=== PATIENT | female | born 1940 | race Caucasian/White ===

== ENCOUNTER → 2016-04-05 | Outpatient (CLI) | payer BC, OTHER ==
[~2016-04-05] MED LIST: CYCL0.052 OP; LEVO25TA PO
[2016-04-05 14:05] LABS: THYROID STIMULATING HORMONE 1.16 uIu/ml (0.300-4.500)
== END | disposition home or self-care (01) ==
LOC: C.LABBC 10:04
PROVIDERS: ATTEND Internal Medicine
DX: E03.9 Hypothyroidism, unspecified (principal)

== ENCOUNTER → 2016-05-13 | Outpatient (CLI) | payer BC ==
--- NOTE | 2016-05-13 11:41 | DIAGNOSTIC IMAGING REPORT ---
TWO VIEW CHEST CLINICAL HISTORY: Cough. FINDINGS: PA and lateral chest radiographs are compared to study dated 08/17/2013. The heart is mildly enlarged and there is atherosclerotic calcification of the thoracic aorta. There is a questionable 1.5 cm nodular density in the right midlung. No airspace consolidation or pleural effusion is seen. There is no pneumothorax. The skeletal structures are osteopenic. Degenerative change is noted throughout the thoracic spine. IMPRESSION: 1. Mild cardiac enlargement with no acute cardiopulmonary abnormality. 2. There is a questionable 1.5 cm nodular density projecting over the right midlung. Although this could represent artifact, a chest CT is recommended to exclude underlying pulmonary lesion. Electronically signed by: Todd Woods M.D. 05/13/2016 11:40 AM Dictated Date/Time: 05/13/2016 11:38 AM
== END | disposition home or self-care (01) ==
LOC: C.RAD1850 11:22
PROVIDERS: ATTEND Internal Medicine
DX: R05 Cough (principal)

== ENCOUNTER → 2016-05-21 | Outpatient (CLI) | payer BC ==
--- NOTE | 2016-05-21 08:53 | DIAGNOSTIC IMAGING REPORT ---
CT OF THE CHEST WITHOUT IV CONTRAST CLINICAL HISTORY: Pulmonary nodule COMPARISON STUDY: Chest x-ray dated 05/13/2016 CT DOSE: 216.12 mGy.cm TECHNIQUE: CT of the thorax was performed from the thoracic inlet to the lung bases. Images are reviewed in the axial, sagittal, and coronal planes. IV contrast was not administered for this examination. FINDINGS: Thyroid: Imaged portions of the thyroid gland are normal in appearance. Thoracic aorta: The thoracic aorta is normal in course and caliber, noting standard 3 vessel arch anatomy. Heart: The heart is normal in size and configuration, without pericardial effusion. Lungs and pleural spaces: There is mild pulmonary emphysema. There is a 4.5 mm solid right lower lobe pulmonary nodule as visualized on image #161/[id number]. There is irregular partially groundglass and solid 12 mm right upper lobe pulmonary nodule as visualized on image #129/316. This explains the chest x-ray findings. There are associated small occluded bronchi. Within the left upper lobe, there are clustered nodules and interstitial opacities. The largest nodule measures 6.8 mm. This is located on image #65/316. On image #191/3 and 16. There is a 3 mm solid pulmonary nodule. There are no pleural effusions. Mediastinum: There is no mediastinal lymphadenopathy. Kati: There is no evidence of pathologic hilar adenopathy given the limitations of a noncontrast study Axilla: Clear. Upper abdomen: Partially visualized upper abdominal viscera is within normal limits. Skeletal structures: There are no lytic or blastic osseous lesions. IMPRESSION: 1. Bilateral pulmonary nodules, including an irregularly partially groundglass and solid 12 mm right upper lobe pulmonary nodule which explains the chest x-ray findings. There are associated small occluded bronchi. Short-term follow-up is recommended to differentiate an inflammatory from neoplastic process. Please refer to below summary of Fleischner criteria recommendations for follow-up of incidental CT nodules (Viktor Talamantes, Guidelines for management of small pulmonary nodules detected on CT scans: A statement from the Fleischner Society, Radiology 237: [phone].) SOLID NODULES Solitary nodule size: <6 mm * low risk patients: no follow-up needed * high risk patients: optional CT at 12 months Solitary nodule size: 6-8 mm * low risk patients: follow-up at 6-12 months, then consider further follow-up at 18-24 months * high risk patients: initial follow-up CT at 6-12 months and then at 18-24 months if no change Solitary nodule size: >8 mm * either low or high risk patients - consider follow-up CT at 3 months, and/or CT-PET, and/or biopsy Multiple nodules size: <6 mm * low risk patients: no routine follow-up * high risk patients: optional CT at 12 months Multiple nodules size: 6-8 mm * low risk patients: follow-up at 3-6 months, then consider further follow-up at 18-24 months * high risk patients: follow-up at 3-6 months, then at 18-24 months if no change Multiple nodules size: >8 mm * low risk patients: follow-up at 3-6 months, then consider further follow-up at 18-24 months * high risk patients: follow-up at 3-6 months, then at 18-24 months if no change Note: newly detected indeterminate nodule in persons 35 years of age or older. * low risk patients: minimal or absent history of smoking and/or other known risk factors * high risk patients: history of smoking or of other known risk factors (e.g. first degree relative with lung cancer, or exposure to asbestos, radon, uranium) * if a nodule up to 8 mm is partly solid or is ground glass further follow-up is required after 24 months to exclude possible slow growing adenocarcinoma (CAITLIN) SUBSOLID NODULES Solitary pure ground-glass nodule * nodule size <6 mm - no CT follow-up required * nodule size >=6 mm - follow-up CT at 6-12 months, then every 2 years until 5 years Solitary part-solid nodule * nodule size <6 mm - no CT follow-up required * nodule size >=6 mm - follow-up CT at 3-6 months. If unchanged, and solid component remains <6 mm, then annual follow-up for 5 years Multiple subsolid nodules * nodule size <6 mm - follow-up CT at 3-6 months, consider further follow-up at 2 and 4 years if stable * nodule size >=6 mm - follow-up CT at 3-6 months, subsequent management based on the most suspicious nodule(s) Electronically signed by: Tono Stack M.D. 05/21/2016 8:51 AM Dictated Date/Time: 05/21/2016 8:41 AM
== END | disposition home or self-care (01) ==
LOC: C.CTS 08:26
PROVIDERS: ATTEND Physician Assistant
DX: R91.8 Other nonspecific abnormal finding of lung field (principal); J98.09 Other diseases of bronchus, not elsewhere classified

== ENCOUNTER → 2016-06-17 | Outpatient (CLI) | payer BC ==
[2016-06-17 14:41] LABS: HEMATOCRIT 37.3 % (37-47); MEAN CELL VOLUME 86.1 fL (80-100); MEAN CORPUSCULAR HEMOGLOBIN 28.2 pg (25-34); MEAN CORPUSCULAR HGB CONC 32.7 g/dl (32-36); MEAN PLATELET VOLUME 11.1 fL (7.4-10.4); PLATELET COUNT 163 K/uL (130-400); RED BLOOD COUNT 4.33 M/uL (4.2-5.4); WHITE BLOOD COUNT 3.16 K/uL (4.8-10.8)
[2016-06-17 15:03] LABS: BLOOD UREA NITROGEN 21 mg/dl (7-18); BUN/CREATININE RATIO 25.4 (10-20); CALCIUM 9.3 mg/dl (8.5-10.1); CARBON DIOXIDE 31 mmol/L (21-32); CHLORIDE 108 mmol/L (98-107); CREATININE 0.84 mg/dl (0.60-1.20); GLUCOSE 101 mg/dl (70-99); POTASSIUM 4.2 mmol/L (3.5-5.1); SODIUM 144 mmol/L (136-145)
[2016-06-17 15:13] LABS: THYROID STIMULATING HORMONE 0.656 uIu/ml (0.300-4.500)
[2016-06-17 15:41] LABS: BASO % 0.3 %; BASO ABS # 0.01 K/uL (0-0.2); COMPLETE YES; EOS % 1.9 %; LYMPH % 55.1 %; LYMPH ABS # 1.74 K/uL (1.2-3.4); MONO % 8.9 %; NEUT % 33.8 %
== END | disposition home or self-care (01) ==
LOC: C.LABBC 09:48
PROVIDERS: ATTEND Internal Medicine
DX: D72.819 Decreased white blood cell count, unspecified (principal); E55.9 Vitamin D deficiency, unspecified; E03.9 Hypothyroidism, unspecified

== ENCOUNTER → 2016-08-12 | Outpatient (CLI) | payer BC | END | disposition home or self-care (01) | LOC: C.LABSPEC 17:03 | PROVIDERS: ATTEND Podiatrist Primary Podiatric Medicine | DX: B35.1 Tinea unguium (principal) ==

== ENCOUNTER → 2016-09-15 | Outpatient (CLI) | payer BC ==
--- NOTE | 2016-09-15 11:03 | DIAGNOSTIC IMAGING REPORT ---
(CHEST) THORAX WITHOUT CT DOSE: 339.83 mGycm HISTORY: Lung nodules R91.8 Multiple lung nodules TECHNIQUE: Multiaxial CT images of the chest were performed without contrast. A dose lowering technique was utilized adhering to the principles of ALARA. COMPARISON: 05/21/2016 FINDINGS: Unchanging left upper lobe parenchymal nodule. Slight improvement in associated infiltrative change considered pleural-based lateral aspect left upper lung. The additional nodules appear stable to perhaps minimally diminished in prominence. Groundglass density within the right upper lobe is diminished in prominence. Maximum dimension currently is approximately 1 cm diminished from the prior dimension of 1.2 cm. Density has also diminished which is considered an improvement. The included bronchi have improved. Nodular density right lower lobe transaxial image 32 is unchanged. There is no evidence for new interval or progressive parenchymal nodule. There is no significant hilar or mediastinal jose pathology. There are degenerative changes of thoracic region. IMPRESSION: 1. Improved exam with the groundglass nodule right upper lung diminished in volume as well as density. 2. All additional nodules are stable with routine follow-up recommended. Please refer to below summary of Fleischner criteria recommendations for follow-up of incidental CT nodules (Viktor Talamantes, Guidelines for management of small pulmonary nodules detected on CT scans: A statement from the Fleischner Society, Radiology 237: [phone].) SOLID NODULES Solitary nodule size: <6 mm * low risk patients: no follow-up needed * high risk patients: optional CT at 12 months Solitary nodule size: 6-8 mm * low risk patients: follow-up at 6-12 months, then consider further follow-up at 18-24 months * high risk patients: initial follow-up CT at 6-12 months and then at 18-24 months if no change Solitary nodule size: >8 mm * either low or high risk patients - consider follow-up CT at 3 months, and/or CT-PET, and/or biopsy Multiple nodules size: <6 mm * low risk patients: no routine follow-up * high risk patients: optional CT at 12 months Multiple nodules size: 6-8 mm * low risk patients: follow-up at 3-6 months, then consider further follow-up at 18-24 months * high risk patients: follow-up at 3-6 months, then at 18-24 months if no change Multiple nodules size: >8 mm * low risk patients: follow-up at 3-6 months, then consider further follow-up at 18-24 months * high risk patients: follow-up at 3-6 months, then at 18-24 months if no change Note: newly detected indeterminate nodule in persons 35 years of age or older. * Low risk patients: minimal or absent history of smoking and/or other known risk factors * high risk patients: history of smoking or of other known risk factors (e.g. first degree relative with lung cancer, or exposure to asbestos, radon, uranium) * if a nodule up to 8 mm is partly solid or is ground glass further follow-up is required after 24 months to exclude possible slow growing adenocarcinoma (CAITLIN) SUBSOIL NODULES Solitary pure ground-glass nodule * nodule size <6 mm - no CT follow-up required * nodule size >=6 mm - follow-up CT at 6-12 months, then every 2 years until 5 years Solitary part-solid nodule * nodule size <6 mm - no CT follow-up required * nodule size >=6 mm - follow-up CT at 3-6 months. If unchanged, and solid component remains <6 mm, then annual follow-up for 5 years Multiple subsolid nodules * nodule size <6 mm - follow-up CT at 3-6 months, consider further follow-up at 2 and 4 years if stable * nodule size >=6 mm - follow-up CT at 3-6 months, subsequent management based on the most suspicious nodule(s) The above report was generated using voice recognition software. It may contain grammatical, syntax or spelling errors. Electronically signed by: Shelton Romero M.D. 09/15/2016 11:01 AM Dictated Date/Time: 09/15/2016 10:54 AM
== END | disposition home or self-care (01) ==
LOC: C.CTS 10:41
PROVIDERS: ATTEND Internal Medicine Pulmonary Disease
DX: R91.8 Other nonspecific abnormal finding of lung field (principal)

== ENCOUNTER → 2016-12-03 | Outpatient (CLI) | payer BC ==
[2016-12-03 11:15] LABS: HEMATOCRIT 37.8 % (37-47); MEAN CELL VOLUME 84.9 fL (80-100); MEAN CORPUSCULAR HEMOGLOBIN 28.1 pg (25-34); MEAN CORPUSCULAR HGB CONC 33.1 g/dl (32-36); MEAN PLATELET VOLUME 10.3 fL (7.4-10.4); PLATELET COUNT 170 K/uL (130-400); RED BLOOD COUNT 4.45 M/uL (4.2-5.4); WHITE BLOOD COUNT 4.04 K/uL (4.8-10.8)
[2016-12-03 11:29] LABS: BASO % 0.2 %; BASO ABS # 0.01 K/uL (0-0.2); COMPLETE YES; LYMPH % 67.1 %; LYMPH ABS # 2.71 K/uL (1.2-3.4); MONO % 10.6 %; NEUT % 21.1 %
[2016-12-03 12:14] LABS: BLOOD UREA NITROGEN 22 mg/dl (7-18); BUN/CREATININE RATIO 25.8 (10-20); CALCIUM 9.3 mg/dl (8.5-10.1); CARBON DIOXIDE 31 mmol/L (21-32); CHLORIDE 106 mmol/L (98-107); CHOLESTEROL 184 mg/dl (0-200); CREATININE 0.86 mg/dl (0.60-1.20); GLUCOSE 86 mg/dl (70-99); POTASSIUM 4.7 mmol/L (3.5-5.1); SODIUM 141 mmol/L (136-145); TRIGLYCERIDES 146 mg/dl (0-150); VERY LOW DENSITY LIPOPROT CALC 29 mg/dl
[2016-12-03 12:23] LABS: CHOLESTEROL/HDL RATIO 3.5; HDL CHOLESTEROL 52 mg/dl; LDL CHOLESTEROL CALCULATED 103 mg/dl; THYROID STIMULATING HORMONE 0.756 uIu/ml (0.300-4.500)
== END | disposition home or self-care (01) ==
LOC: C.LABBC 08:12
PROVIDERS: ATTEND Internal Medicine
DX: E03.9 Hypothyroidism, unspecified (principal); E78.5 Hyperlipidemia, unspecified; D72.819 Decreased white blood cell count, unspecified; E55.9 Vitamin D deficiency, unspecified

== ENCOUNTER → 2017-01-27 | Outpatient (CLI) | payer BC ==
--- NOTE | 2017-01-28 07:35 | MAMMOGRAPHY REPORT ---
BILATERAL DIGITAL SCREENING MAMMOGRAM WITH CAD: 01/27/2017 CLINICAL HISTORY: Routine screening. Patient has no complaints. TECHNIQUE: Bilateral CC and MLO views were obtained. Current study was also evaluated with a Comput er Aided Detection (CAD) system. COMPARISON: Comparison is made to exams dated: 01/25/2016 mammogram, 01/23/2015 mammogram, 01/17/2014 mammogram, 01/13/2013 mammogram, 01/13/2012 mammogram, and 01/03/2011 stereotactic biopsy - [facility]. BREAST COMPOSITION: There are scattered areas of fibroglandular density in both breasts. FINDINGS: A focal asymmetry in the 6:00 middle one third of the right breast is stable on all availab le prior mammograms dating back to at least 2008, therefore likely benign. There is a stable metalli c biopsy marker clip in the anterior right breast. Numerous benign rim calcifications bilaterally. No new suspicious mass, architectural distortion or cluster of microcalcifications is seen. IMPRESSION: ACR BI-RADS CATEGORY 1: NEGATIVE There is no mammographic evidence of malignancy. A 1 year screening mammogram is recommended. The pa tient will receive written notification of the results. Approximately 10% of breast cancers are not detected with mammography. A negative mammographic report should not delay biopsy if a clinically suggestive mass is present. Hanna Sawyer M.D. ay/:01/27/2017 16:21:18 Verifying Specialist: Parisa Giraldo M, [facility] letter sent: Normal 1/2 BI-RADS Code: ACR BI-RADS Category 1: Negative
== END | disposition home or self-care (01) ==
LOC: C.MAMM 11:15
PROVIDERS: ATTEND Internal Medicine
DX: Z12.31 Encounter for screening mammogram for malignant neoplasm of breast (principal)

== ENCOUNTER → 2017-04-13 | Outpatient (CLI) | payer BC ==
[2017-04-13 11:42] LABS: HEMATOCRIT 37.6 % (37-47); HEMOGLOBIN 12.5 g/dL (12.0-16.0); MEAN CELL VOLUME 85.5 fL (80-100); MEAN CORPUSCULAR HEMOGLOBIN 28.4 pg (25-34); MEAN CORPUSCULAR HGB CONC 33.2 g/dl (32-36); MEAN PLATELET VOLUME 10.4 fL (7.4-10.4); PLATELET COUNT 180 K/uL (130-400); RED CELL DISTRIBUTION WIDTH CV 15.3 % (11.5-14.5); RED CELL DISTRIBUTION WIDTH SD 48.1 fL (36.4-46.3); WHITE BLOOD COUNT 4.24 K/uL (4.8-10.8)
== END | disposition home or self-care (01) ==
LOC: C.LABBC 09:04
PROVIDERS: ATTEND Internal Medicine
DX: E03.9 Hypothyroidism, unspecified (principal); D72.819 Decreased white blood cell count, unspecified

== ENCOUNTER → 2017-04-30 | Outpatient (CLI) | payer BC ==
[2017-04-30 13:33] LABS: HEMATOCRIT 38.5 % (37-47); HEMOGLOBIN 12.5 g/dL (12.0-16.0); MEAN CELL VOLUME 85.4 fL (80-100); MEAN CORPUSCULAR HEMOGLOBIN 27.7 pg (25-34); MEAN CORPUSCULAR HGB CONC 32.5 g/dl (32-36); MEAN PLATELET VOLUME 10.6 fL (7.4-10.4); PLATELET COUNT 169 K/uL (130-400); RED CELL DISTRIBUTION WIDTH CV 15.1 % (11.5-14.5); RED CELL DISTRIBUTION WIDTH SD 47.2 fL (36.4-46.3); WHITE BLOOD COUNT 4.27 K/uL (4.8-10.8)
[2017-04-30 13:38] LABS: BLOOD UREA NITROGEN 23 mg/dl (7-18); CALCIUM 8.9 mg/dl (8.5-10.1); CARBON DIOXIDE 28 mmol/L (21-32); CREATININE 0.84 mg/dl (0.60-1.20); GLUCOSE 106 mg/dl (70-99); SODIUM 140 mmol/L (136-145)
== END | disposition home or self-care (01) ==
LOC: C.LABBC 09:58
PROVIDERS: ATTEND Internal Medicine
DX: D75.81 Myelofibrosis (principal)

== ENCOUNTER → 2017-05-19 | Outpatient (CLI) | payer BC ==
--- NOTE | 2017-05-19 11:41 | DIAGNOSTIC IMAGING REPORT ---
ABDOMEN COMPLETE (US) CLINICAL HISTORY: Myelofibrosis. COMPARISON STUDY: No previous studies for comparison. FINDINGS: Liver is sonographically normal. There is no biliary ductal dilatation. The common bile duct measures 5 mm in caliber. There are gallstones and sludge within the gallbladder. Borderline gallbladder wall thickening is noted with the wall measuring approximately 3 mm. There is no pericholecystic fluid. The pancreas is within normal limits although the head and tail are partially obscured. The spleen is mildly enlarged measuring 13 cm in maximal dimension. The right kidney measures 12.3 cm and the left measures 11.1 cm. There is no hydronephrosis. The caliber of the abdominal aorta is normal. There is no ascites. Visualized portions of the IVC are patent. IMPRESSION: 1. Mild splenomegaly. Spleen measures 13 cm in maximal dimension. 2. Cholelithiasis with borderline gallbladder wall thickening. No pericholecystic fluid. These findings are not highly suggestive of acute cholecystitis although correlation with right upper quadrant pain is recommended. 3. No biliary ductal dilatation. Electronically signed by: Juan Moon M.D. 05/19/2017 11:40 AM Dictated Date/Time: 05/19/2017 11:36 AM
== END | disposition home or self-care (01) ==
LOC: C.ULTR 10:13
PROVIDERS: ATTEND Internal Medicine Hematology & Oncology
DX: K80.20 Calculus of gallbladder without cholecystitis without obstruction (principal); D75.81 Myelofibrosis

== ENCOUNTER → 2017-07-02 | Outpatient (CLI) | payer BC ==
--- NOTE | 2017-07-02 08:45 | DIAGNOSTIC IMAGING REPORT ---
(CHEST) THORAX WITHOUT CT DOSE: 272.21 mGycm HISTORY: Lung nodules R91.8 Multiple lung nodules on CTto be done in 9 [id number] TECHNIQUE: Multiaxial CT images of the chest were performed without contrast. A dose lowering technique was utilized adhering to the principles of ALARA. COMPARISON: 09/15/2016 FINDINGS: All findings are stable. Parenchymal nodule left pulmonary apex with fibrotic stranding towards the left pleural service is unchanged. The small nodular density superior segment right lower lobe is unchanged. Groundglass density of the right perihilar region is unchanged with maximum dimensions of 9 mm. Lung bases are considered clear. No significant mediastinal or hilar adenopathy. IMPRESSION: Identical exam compared to the prior study. 2. The several parenchymal nodules as well as groundglass densities are unchanged. 3. No new or interval process. 4. Follow-up CT in one year is suggested. The above report was generated using voice recognition software. It may contain grammatical, syntax or spelling errors. Electronically signed by: Shelton Romero M.D. 07/02/2017 8:44 AM Dictated Date/Time: 07/02/2017 8:39 AM
== END | disposition home or self-care (01) ==
LOC: C.CTS 08:27
PROVIDERS: ATTEND Internal Medicine Pulmonary Disease
DX: R91.8 Other nonspecific abnormal finding of lung field (principal)

== ENCOUNTER → 2017-09-18 | Outpatient (CLI) | payer BC ==
[~2017-09-18] MED LIST changes: +CYAN100020 PO; -CYCL0.052 OP; +CYCL0.052 OPB; +HYDR-5688 PO; +LEVO100T7 PO; -LEVO25TA PO; +VITAMIN D PO
[2017-09-18 10:44] LABS: ALBUMIN 3.9 gm/dl (3.4-5.0); ALKALINE PHOSPHATASE 57 U/L (45-117); ALT/SGPT 32 U/L (12-78); AST/SGOT 33 U/L (15-37); BLOOD UREA NITROGEN 22 mg/dl (7-18); CARBON DIOXIDE 29 mmol/L (21-32); GLUCOSE 83 mg/dl (70-99); POTASSIUM 4.5 mmol/L (3.5-5.1); PTT PATIENT 25.2 SECONDS (21.0-31.0); SODIUM 140 mmol/L (136-145); TOTAL PROTEIN 7.1 gm/dl (6.4-8.2)
== END | disposition home or self-care (01) ==
LOC: C.LAB 08:44
PROVIDERS: ATTEND Surgery
DX: Z01.810 Encounter for preprocedural cardiovascular examination (principal); Z01.812 Encounter for preprocedural laboratory examination

== ENCOUNTER 2017-09-23 06:01 | Observation (INO) | payer BC ==
[2017-09-17 08:40] VITALS: BMI 28.0
[2017-09-18 09:05] VITALS: BMI 28.0
--- NOTE | 2017-09-18 09:23 | PAT Medication Instructions ---
Service Date Sep 18, 2017. Current Home Medication List Cyanocobalamin (Vitamin B12), 1 TAB PO QAM Cyclosporine (Ophth) (Restasis), 1 DROP OPB BID Levothyroxine Sodium (Levothyroxine Sodium), 1 TAB PO QAM [Vitamin D], 4,000 INTER.UNIT PO QAM Medication Instructions For Your Scheduled Surgery - Hold the following medications the morning of surgery: Cyanocobalamin (Vitamin B12), 1 TAB PO QAM [Vitamin D], 4,000 INTER.UNIT PO QAM - Take the following medications the morning of surgery with a sip of water: Cyclosporine (Ophth) (Restasis), 1 DROP OPB BID --Bring with you to the hospital Levothyroxine Sodium (Levothyroxine Sodium), 1 TAB PO QAM - Take the following medications as scheduled the night before surgery: Cyclosporine (Ophth) (Restasis), 1 DROP OPB BID If you have any questions please call us at [phone] or [phone] or [phone]
[~2017-09-23] VITALS: Ht 165.1 cm; Wt 77.2 kg
[2017-09-23] VITALS (12 sets, daily range): BP systolic 102–132; BP diastolic 47–75; PULSE 45–64; TEMP 36.4–36.8; O2SAT 95–97; Ht 165.1 cm; Wt 77.2 kg
[~2017-09-23 06:01] MED LIST changes: +CLINDAMYCIN IV 900 MG in DEXTROSE 5% 50ML 44 ML IV SCH; -HYDR-5688 PO; +LACTATED RINGER'S 1000ML 1,000 ML IV SCH
[2017-09-23] MEDS ORDERED: ROCURONIUM BROMIDE 10 MG/ML 5 ML VIAL ONE (07:38)
[2017-09-23] MEDS ORDERED: PROPOFOL IV EMULSION 10 MG/ML 20 ML VIAL ONE (07:38)
[2017-09-23] MEDS ORDERED: LIDOCAINE 2% 20 MG/ML 5ML SYR ONE (07:38)
[2017-09-23] MEDS ORDERED: FENTANYL CITRATE INJ 50 MCG/1 ML 2 ML VIAL ONE ×2 (07:39→09:05)
[2017-09-23] MEDS ORDERED: PHENYLEPHRINE 100MCG/ML 5ML SYR IV PRN (07:45)
[2017-09-23] MEDS ORDERED: ATROPINE SULFATE 0.1 MG/ML 5ML SYR IV PRN (07:45)
[2017-09-23] MEDS ORDERED: EpHEDrine SULFATE INJ 50 MG/ML AMP IV PRN (07:45)
[2017-09-23] MEDS ORDERED: ONDANSETRON INJ 2 MG/ML 2 ML VIAL IV PRN ×2 (07:45→09:30)
[2017-09-23] MEDS ORDERED: FENTANYL CITRATE INJ 50 MCG/1 ML 2 ML VIAL IV PRN (07:45)
[2017-09-23] MEDS ORDERED: HYDROmorphone INJ 1 MG/ML SYR IV PRN (07:45)
[2017-09-23] MEDS ORDERED: BUPIVACAINE 0.5 % 5 MG/1 ML PF 10ML VIAL ONE (08:08)
[2017-09-23] MEDS ORDERED: CONRAY 60% 50 ML VIAL ONE (08:08)
--- NOTE | 2017-09-23 08:08 | History & Physical Bridge Note ---
H&P Re-Evaluation Bridge Note: I have examined the patient, reviewed the History & Physical and in the interval since the performance of the History & Physical I have noted the following changes of clinical significance: No changes noted
[2017-09-23] MEDS ORDERED: DEXAMETHASONE SOD INJ 4 MG/ML VIAL ONE (08:46)
[2017-09-23] MEDS ORDERED: EpHEDrine SULFATE 50MG/5ML SYR ONE (08:46)
[2017-09-23] MEDS ORDERED: ONDANSETRON INJ 2 MG/ML 2 ML VIAL ONE (08:46)
[2017-09-23] MEDS ORDERED: NEOSTIGMINE METHYLSULFATE 5 MG/5 ML SYR ONE (09:06)
[2017-09-23] MEDS ORDERED: GLYCOPYRROLATE INJ 0.2 MG/ML VIAL ONE (09:06)
--- NOTE | 2017-09-23 09:22 | [facility] Operative Report ---
Operative Report Operative Date Sep 23, 2017. Pre-Operative Diagnosis Biliary colic and Biliary Dyskinesia Post-Operative Diagnosis Biliary colic and Biliary Dyskinesia, chronic cholecystitis Procedure(s) Performed Laparoscopic Cholecystectomy Surgeon Dr. Aston Brock Informal Waiter/Waitress Surgeon(s) None Estimated Blood Loss 10 cc Findings chronic adhesions Specimens A: Gallbladder and Contents Drains None Anesthesia Type General Complication(s) none Disposition Recovery Room / PACU I attest to the content of the Intraoperative Record and any orders documented therein. Any exceptions are noted below.
[2017-09-23] MEDS ORDERED: MoRPHine SULFATE 2 MG/ML CARP IV PRN (09:30)
[2017-09-23] MEDS ORDERED: MoRPHine SULFATE 4 MG/ML 1 ML CARP\\VIAL IV PRN (09:30)
[2017-09-23] MEDS ORDERED: HYDROCODONE/ACETAMIN 5/325MG TAB PO PRN ×2 (09:30)
[2017-09-23] MEDS ORDERED: ACETAMINOPHEN IV 100 ML IV ONE (09:30)
--- NOTE | 2017-09-23 10:22 | Anesthesiology Progress Note ---
Anesthesia Post Op Note Date & Time Sep 23, 2017 at 10:22 Vital Signs Pain Intensity: 3 Vital Signs Past 12 Hours Date Time Temp Pulse Resp B/P (MAP) Pulse Ox O2 Delivery O2 Flow Rate FiO2 09/23/17 10:10 53 20 120/53 98 Room Air 09/23/17 10:00 54 16 127/56 100 Oxymask 10 09/23/17 09:50 59 16 122/59 100 Oxymask 09/23/17 09:43 36.2 76 16 133/68 100 Oxymask 10 09/23/17 06:29 36.8 64 18 118/47 (70) 97 Room Air Notes Mental Status: alert / awake / arousable, participated in evaluation Pt Amnestic to Procedure: Yes Nausea / Vomiting: adequately controlled Pain: adequately controlled Airway Patency, RR, SpO2: stable & adequate BP & HR: stable & adequate Hydration State: stable & adequate Anesthetic Complications: no major complications apparent
[2017-09-23] MEDS ORDERED: SODIUM CHLORIDE 0.9% 1000ML 1,000 ML IV SCH (11:00)
[2017-09-23] MEDS ORDERED: IV FLUIDS COMPLETED PRN (11:30)
--- NOTE | 2017-09-23 12:01 | Medical Consult ---
Consultation Date of Consultation: Sep 23, 2017. Attending Physician: Aston Brock M.D. Reason for Consultation: Perioperative care History of Present Illness This is a 77 yo female that had some nausea as an out patient at the hematology clinic. They ordered an ultra sound which did not reveal infection but did have some sludge. She then had a HIDA scan 09/01/17 which also revealed some sludge with no obstruction. An elective laparoscopic cholecystectomy was performed today with no complications. We were consulted for medical management. On exam, the patient was found to have bradycardia in the mid 40s. Patient reported that she had some readings in the 30s. An EKG was ordered and revealed 1st degree heart block. Patient was transferred to telemetry before further antiemetics were administered. In the tele unit, heart rate was 49 and was NSR. Patient denies other significant PMH. She is being treated for hypothyroidism with medications being titrated regularly by Dr. Alvarez. She denies tobacco abuse history, cardiopulmonary disease, HTN, thromboembolic disease. No recent travel or illness Patient denies chest pain, tightness, palpitations, fever, chills, sweats. No diarrhea. Patient no history of C. diff or other gastrointestinal disease NUCLEAR MEDICINE HEPATOBILIARY SCAN WITH EJECTION FRACTION ANALYSIS CLINICAL HISTORY: GALLSTONES right upper quadrant abdominal pain COMPARISON STUDY: Abdominal ultrasound dated 05/19/2017 FINDINGS: The patient was injected with 5.5 mCi of technetium 99m Choletec. Sequential anterior images were acquired. Hepatic excretion appeared unremarkable. There is normal passage of activity into small bowel. The gallbladder was first visualized on the 15 minute image. At 1 hour, the patient was injected with 1.5 mcg of intravenous sincalide utilizing a 30 minute infusion. The gallbladder ejection fraction was slightly diminished measuring 29%. IMPRESSION: 1. No evidence of cystic duct obstruction 2. Slightly diminished gallbladder ejection fraction of 29%. Electronically signed by: Tono Stack M.D. 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 Ankylosing spondylitis Raynauds disease Surgical History: B/L cataract repair Bone marrow biopsy Mammogram Colonoscopy Multiple D&Cs ORIF radius fracture Family History Mother of unspecified heart block Breast cancer Ovarian cancer Colon cancer Social History Smoking Status: Never Smoker Smokeless Tobacco Use: No Alcohol Use: 1 or 2 glasses of wine per year Marital Status: Housing Status: lives alone Occupation Status: retired Allergies Coded Allergies: Penicillins (Verified Allergy, Mild, HIVES, 09/23/17) Home Medications Home Meds and Scripts Medications Dose Route/Sig Max Daily Dose Days Date Category Restasis (Cyclosporine (Ophth)) 0.05 % Emu 1 Drop OPB BID 09/17/17 Reported Vitamin B12 (Cyanocobalamin) 1,000 Mcg Tab 1 Tab PO QAM 09/17/17 Reported [Vitamin D] 4,000 Inter.unit PO QAM 09/17/17 Reported Levothyroxine Sodium 100 Mcg Tab 1 Tab PO QAM 09/17/17 Reported Current Inpatient Medications Current Inpatient Medications Medications (Trade) Dose Ordered Sig/Lionel Route Start Time Stop Time Status Last Admin Dose Admin Lactated Ringer's 1,000 ml @ 15 mls/hr Q24H IV 09/23/17 06:00 09/24/17 05:59 09/23/17 06:29 15 MLS/HR Fentanyl Citrate (Fentanyl Inj) 25 mcg Q5M PRN IV 09/23/17 07:45 09/23/17 12:45 Hydromorphone HCl (Dilaudid Inj) 0.5 mg Q5M PRN IV 09/23/17 07:45 09/23/17 12:45 Ondansetron HCl (Zofran Inj) 4 mg ONE PRN IV 09/23/17 07:45 09/23/17 12:45 Ephedrine Sulfate (EpHEDrine SULFATE INJ) 5 mg Q5M PRN IV 09/23/17 07:45 09/23/17 12:45 Atropine Sulfate (Atropine Sulfate 0.1mg/ml Inj) 0.5 mg Q1M PRN IV 09/23/17 07:45 09/23/17 12:45 Phenylephrine HCl (Alo-Synephrine 500MCG/5ML Syr) 100 mcg Q5M PRN IV 09/23/17 07:45 09/23/17 12:45 Acetaminophen/ Hydrocodone Bitart ([place] 5/325 Tab) 1 tab Q4 PRN PO 09/23/17 09:30 10/07/17 09:29 Acetaminophen/ Hydrocodone Bitart ([place] 5/325 Tab) 2 tab Q4 PRN PO 09/23/17 09:30 10/07/17 09:29 Morphine Sulfate (MoRPHine SULFATE INJ) 2 mg Q4H PRN IV 09/23/17 09:30 10/07/17 09:29 Morphine Sulfate (MoRPHine SULFATE INJ) 4 mg Q4H PRN IV 09/23/17 09:30 10/07/17 09:29 Ondansetron HCl (Zofran Inj) 4 mg Q6H PRN IV 09/23/17 09:30 10/23/17 09:29 Levothyroxine Sodium (Synthroid Tab) 100 mcg DAILYBB PO 09/24/17 06:00 10/24/17 05:59 Clindamycin Phosphate 600 mg/ Dextrose 54 ml @ 108 mls/hr Q8 IV 09/23/17 14:00 10/03/17 13:59 Miscellaneous (Iv Fluids Completed) 1 ea PRN PRN N/A 09/23/17 11:30 09/23/18 11:29 Review of Systems Constitutional: No fever, No chills Eyes: No eye pain, No redness ENT: No hearing loss, No unusual epistaxis, No trouble swallowing Respiratory: No cough, No sputum, No shortness of breath, No dyspnea on exertion, No hemoptysis Cardiovascular: No chest pain, No edema, No claudication, No palpitations Abdomen: + nausea, No pain, No vomiting, No diarrhea Musculoskeletal: No joint pain Neurologic: No numbness/tingling, No vertigo Hematologic / Lymphatic: No abnormal bleeding/bruising, No clotting problems, No swollen lymph nodes, No night sweats Integumentary: No rash, No itch Allergic / Immunologic: + problem reported (sensitivity to adhesives), No environmental allergies, No food allergies Physical Exam Date Time Temp Pulse Resp B/P (MAP) Pulse Ox O2 Delivery O2 Flow Rate FiO2 09/23/17 11:43 46 16 121/66 (84) 96 Room Air 09/23/17 11:11 46 16 132/67 (88) 97 Room Air 09/23/17 10:40 Nasal Cannula 2.0 09/23/17 10:40 36.5 45 16 132/75 (94) 97 Nasal Cannula 2.0 09/23/17 10:40 Nasal Cannula 2.0 09/23/17 10:20 36.2 50 20 123/84 99 Room Air 09/23/17 10:10 53 20 120/53 98 Room Air 09/23/17 10:00 54 16 127/56 100 Oxymask 10 09/23/17 09:50 59 16 122/59 100 Oxymask 10 09/23/17 09:43 36.2 76 16 133/68 100 Oxymask 10 09/23/17 06:29 36.8 64 18 118/47 (70) 97 Room Air Vital Signs - as noted below Laboratory Data - as noted below Physical Exam: General - NAD Eyes - No icterus, gaze conjugate ENT - Mucosa moist, no lesions or candidiasis Neck - Supple, No JVD Lungs - No bronchospasm, rales, or rhonchi. Heart - Regular, baylee in the 40s. No MGRs. Occasional ectopy Abdomen - Soft, NT, ND, BS present Extremities - No edema, pedal pulses intact Neuro - A&OX3 Assessment & Plan This is a 77 yo female that is POD #[address] Brock. Patient underwent general anesthesia and was found to be bradycardic postoperatively. EKG obtained at bedside and revealed 1st degree AV block with a QtC of 446. Patient reports family history of cardiac from AV block with her mother. Hemodynamically stable. Nausea but no vomiting. Pain generally controlled CHOLYCYSTITIS * POD #0 lap zoe - Dr. Brock * Afebrile * 4 trocar sites * No drains * Abx per Dr. Brock 1ST DEGREE AV BLOCK * New onset. Patient admits to previous hx of bradycardia post operatively but no other heart disease * Denies prior echocardiogram * No CAD * No chest pain, tightness, SOB * Oxygenating well on room air HYPOTHYROIDISM * Continue levothyroxine * Check TSH with reflex T4 Hx NEUTROPENIA/LEUKOPENIA * Preoperative WBC was * Properative Neutrophil count was * Afebrile * No recent illness * Follows with Dr. Dean * Check current labs GERD * No current s/s * Not on an outpatient PPI or H2 long * Monitor DVT PROPHYLAXIS * SCDs * Ambulate as tolerated Thank you for including us in the care of this patient. We will follow along with you. Please refer to Dr. Patino's addendum for further recommendations. Reviewed: Pt Seen/Exam by Me History Physician Systems Software Engineer supervision Note: I interviewed and examined the patient. Discussed with ADAN gale and agree with findings and plan as documented in the note. Any exceptions or clarifications are listed here: Patient was nauseated in the postoperative period and was found to be bradycardic in the 40s. First-degree AV block on ECG. Nausea was improved with Zofran and her bradycardia is improving. She was in the 60s preoperatively her heart rate. She denies chest pain or palpitations, denies shortness of breath. Has some postoperative abdominal pain but otherwise doing well. PMH/PSH/other history and ROS as above Vitals reviewed Gen: AAOx3, NAD HEENT: anicteric sclerae, EOMI CV: Regular rhythm, bradycardic, no mgr nl S1S2 Pulm: CTAB no wcr Abd: +BS soft, minimal tenderness at incision sites, ND no masses or hernias Ext: no edema, 2+ DP pulses Skin: no rashes, warm/dry Neuro: full strength throughout This patient is a 77-year-old female with a history of hypothyroidism, biliary dyskinesia, ankylosing spondylitis, LGL leukemia, here with laparoscopic cholecystectomy. With some sinus bradycardia and nausea postoperatively. Monitor on telemetry -Treat the nausea and that should help the bradycardia -Blood counts are acceptable -Surgical management postoperatively as per Dr. Brock -Continue home levothyroxine Documented By: Brook Patino
--- NOTE | 2017-09-23 12:20 | OPERATIVE REPORT ---
DATE OF OPERATION: 09/23/2017 NAME OF OPERATION: Laparoscopic cholecystectomy. PREOPERATIVE DIAGNOSIS: Biliary colic. POSTOPERATIVE DIAGNOSIS: Biliary colic with chronic cholecystitis. OTHER DIAGNOSIS: Adhesions. STAFF SURGEON: Dr. Brock. ANESTHESIA: General. DESCRIPTION OF PROCEDURE: The patient was brought in to the operating room and placed on the operating table in supine position. Pneumatic stockings, orogastric tube were placed. A 0.5% plain Marcaine was used to anesthetize all incisions. Incision was made above the umbilicus, carrying dissection down, placing a Veress needle producing pneumoperitoneum. An 11 mm port was placed at this level and then under visualization, three 5 mm ports were placed, 1 cephalad and 2 laterally. The patient did have adhesions in chronic nature to the gallbladder. The gallbladder was retracted. The adhesions were taken down. She had adhesions the entire length of the gallbladder. Dissection was carried out at the arpan hepatis identifying a very narrow cystic duct, which was clipped and transected, then the cystic artery identified, clipped and transected. Then, the gallbladder dissected away from the liver bed. There was chronic scar tissue indicating chronic cholecystitis. Gallbladder was removed from the liver bed and then placed in an Endobag. After appropriate hemostasis and irrigation, the Endobag was removed through the umbilical site. I had to enlarge the fascial defect to remove the gallbladder. Fascia at the umbilicus closed using interrupted 0 PDS suture and then the skin reapproximated at all incisions using 4-0 nylon suture. Dressings were applied and patient transferred to recovery room in stable condition. I attest to the content of the Intraoperative Record and any orders documented therein. Any exception s are noted below.
[2017-09-23 13:06] LABS: BASO % 0.3 %; BASO ABS # 0.01 K/uL (0-0.2); EOS % 0.3 %; EOS ABS # 0.01 K/uL (0-0.5); HEMATOCRIT 33.4 % (37-47); HEMOGLOBIN 11.2 g/dL (12.0-16.0); IG# 0.01 K/uL (0.00-0.02); LYMPH % 45.4 %; LYMPH ABS # 1.43 K/uL (1.2-3.4); MEAN CELL VOLUME 83.9 fL (80-100); MEAN CORPUSCULAR HEMOGLOBIN 28.1 pg (25-34); MEAN PLATELET VOLUME 9.9 fL (7.4-10.4); MONO % 2.2 %; MONO ABS # 0.07 K/uL (0.11-0.59); NEUT % 51.5 %; NEUT ABS # 1.62 K/uL (1.4-6.5); PLATELET COUNT 141 K/uL (130-400); RED CELL DISTRIBUTION WIDTH CV 14.8 % (11.5-14.5); RED CELL DISTRIBUTION WIDTH SD 45.9 fL (36.4-46.3); WHITE BLOOD COUNT 3.15 K/uL (4.8-10.8)
[2017-09-23 13:11] LABS: MEAN CORPUSCULAR HGB CONC 33.5 g/dl (32-36)
[2017-09-23 13:36] LABS: CALCIUM 8.2 mg/dl (8.5-10.1); CREATININE 0.82 mg/dl (0.60-1.20); POTASSIUM 3.9 mmol/L (3.5-5.1)
[2017-09-23] MEDS ORDERED: HYDR-5688 PO (13:58)
[2017-09-23] MEDS ORDERED: CLINDAMYCIN 600 MG/54 ML D5W IV SCH (14:00)
--- NOTE | 2017-09-23 14:00 | Discharge Instructions ---
Discharge Instructions Date of Service Sep 23, 2017. Admission Reason for Admission: Biliary Dyskinesia Discharge Discharge Diagnosis / Problem: chronic cholecystitis Discharge Goals Goal(s): Decrease discomfort, Improve function, Improve disease control Activity Recommendations Activity Limitations: as noted below Lifting Limitations: no more than 10 pounds Exercise/Sports Limitations: until after follow-up appointment May Resume Sexual Activity: when tolerated Shower/Bathe: tomorrow Driving or Machine Use: resume 3 days after discharge . Instructions / Follow-Up Instructions / Follow-Up SPECIAL CARE INSTRUCTIONS: * Cover incisions and change daily for comfort/drainage. * May use ibuprofen for pain as tolerated. * Expect some swelling and bruising. Call your doctor if: * Temperature above 101 degrees * Pain not relieved by pain medicine ordered * There is increased drainage or redness from any incision * You have any unanswered questions or concerns [phone]. FOLLOW UP VISIT: If not already scheduled, please call the office for a follow-up visit. for next week- some suture removal OFFICE PHONE NUMBER: Dr. Brock Office Current Hospital Diet Patient's current hospital diet: Regular Diet Discharge Diet Recommended Diet: Regular Diet Procedures Procedures Performed: Laparoscopic Cholecystectomy Pending Studies Studies pending at discharge: no Medical Emergencies . Who to Call and When: Medical Emergencies: If at any time you feel your situation is an emergency, please call 911 immediately. . Non-Emergent Contact Non-Emergency issues call your: Primary Care Provider, Surgeon . "Provider Documentation" section prepared by Aston Brock. .
[2017-09-23] MEDS: CLINDAMYCIN IV 600 MG in DEXTROSE 5% 50ML 50 ML IV SCH ×2 (14:17→21:49)
[2017-09-23] MEDS ORDERED: NURSING VERBAL MED ORDER ONE ×2 (17:15)
[2017-09-23] MEDS ORDERED: ACETAMINOPHEN 325 MG TAB PO PRN (17:15)
[2017-09-23] MEDS: ACETAMINOPHEN SOLN 325 MG/10.15 ML UDC PO PRN ×2 (17:23→23:35)
[2017-09-24] VITALS: BP 116/50; PULSE 53; TEMP 36.6; O2SAT 95
[2017-09-24 02:26] VITALS: BP 106/50; PULSE 49; TEMP 36.5; O2SAT 95
[2017-09-24 04:59] LABS: HEMATOCRIT 33.2 % (37-47); HEMOGLOBIN 10.7 g/dL (12.0-16.0); MEAN CELL VOLUME 83.4 fL (80-100); MEAN CORPUSCULAR HEMOGLOBIN 26.9 pg (25-34); MEAN CORPUSCULAR HGB CONC 32.2 g/dl (32-36); MEAN PLATELET VOLUME 9.9 fL (7.4-10.4); PLATELET COUNT 133 K/uL (130-400); RED CELL DISTRIBUTION WIDTH CV 14.8 % (11.5-14.5); RED CELL DISTRIBUTION WIDTH SD 45.1 fL (36.4-46.3)
[2017-09-24 05:47] LABS: ALBUMIN 3.4 gm/dl (3.4-5.0); CALCIUM 8.4 mg/dl (8.5-10.1); CREATININE 0.87 mg/dl (0.60-1.20); POTASSIUM 4.6 mmol/L (3.5-5.1); TOTAL PROTEIN 6.4 gm/dl (6.4-8.2)
[2017-09-24] MEDS ORDERED: LEVOTHYROXINE 100 MCG TAB PO SCH (06:00)
--- NOTE | 2017-09-24 06:15 | Surgery Progress Note ---
Surgery Progress Note Date of Service Sep 24, 2017. Subjective resting, awakened vitals stable- HR 50's- had some mild urinary incontinence Objective Vital Signs: Date Time Temp Pulse Resp B/P (MAP) Pulse Ox O2 Delivery O2 Flow Rate FiO2 09/24/17 02:26 36.5 49 19 106/50 (68) 95 Room Air 09/24/17 00:00 36.6 53 21 116/50 (72) 95 Room Air 09/24/17 00:00 95 Room Air 09/23/17 19:35 36.4 57 16 102/47 (65) 95 Room Air 09/23/17 16:00 97 Room Air 09/23/17 15:35 51 20 119/72 (88) 97 Room Air 09/23/17 14:00 55 17 121/55 (77) 97 Room Air 09/23/17 13:00 53 18 125/61 (82) 97 Room Air 09/23/17 12:54 96 Room Air 09/23/17 12:02 49 14 113/59 (77) 96 Nasal Cannula 2.0 09/23/17 11:51 36.5 46 16 96 2.0 09/23/17 11:43 46 16 121/66 (84) 96 Room Air 09/23/17 11:11 46 16 132/67 (88) 97 Room Air 09/23/17 10:40 Nasal Cannula 2.0 09/23/17 10:40 36.5 45 16 132/75 (94) 97 Nasal Cannula 2.0 09/23/17 10:40 Nasal Cannula 2.0 09/23/17 10:20 36.2 50 20 123/84 99 Room Air 09/23/17 10:10 53 20 120/53 98 Room Air 09/23/17 10:00 54 16 127/56 100 Oxymask 10 09/23/17 09:50 59 16 122/59 100 Oxymask 10 09/23/17 09:43 36.2 76 16 133/68 100 Oxymask 10 09/23/17 06:29 36.8 64 18 118/47 (70) 97 Room Air General Appearance: no apparent distress Respiratory/Chest: no respiratory distress Abdomen: soft Incision(s): intact Laboratory Results: Results Past 24 Hours Test 09/23/17 12:53 09/24/17 04:51 Range/Units White Blood Count 3.15 3.70 4.8-10.8 K/uL Red Blood Count 3.98 3.98 4.2-5.4 M/uL Hemoglobin 11.2 10.7 12.0-16.0 g/dL Hematocrit 33.4 33.2 37-47 % Mean Corpuscular Volume 83.9 83.4 80-100 fL Mean Corpuscular Hemoglobin 28.1 26.9 25-34 pg Mean Corpuscular Hemoglobin Concent 33.5 32.2 32-36 g/dl Platelet Count 141 133 130-400 K/uL Mean Platelet Volume 9.9 9.9 7.4-10.4 fL Neutrophils (%) (Auto) 51.5 % Lymphocytes (%) (Auto) 45.4 % Monocytes (%) (Auto) 2.2 % Eosinophils (%) (Auto) 0.3 % Basophils (%) (Auto) 0.3 % Neutrophils # (Auto) 1.62 1.4-6.5 K/uL Lymphocytes # (Auto) 1.43 1.2-3.4 K/uL Monocytes # (Auto) 0.07 0.11-0.59 K/uL Eosinophils # (Auto) 0.01 0-0.5 K/uL Basophils # (Auto) 0.01 0-0.2 K/uL RDW Standard Deviation 45.9 45.1 36.4-46.3 fL RDW Coefficient of Variation 14.8 14.8 11.5-14.5 % Immature Granulocyte % (Auto) 0.3 % Immature Granulocyte # (Auto) 0.01 0.00-0.02 K/uL Sodium Level 140 141 136-145 mmol/L Potassium Level 3.9 4.6 3.5-5.1 mmol/L Chloride Level 108 110 98-107 mmol/L Carbon Dioxide Level 26 27 21-32 mmol/L Anion Gap 6.0 4.0 3-11 mmol/L Blood Urea Nitrogen 19 15 7-18 mg/dl Creatinine 0.82 0.87 0.60-1.20 mg/dl Est Creatinine Clear Calc Drug Dose 58.4 55.0 ml/min Estimated GFR () 79.4 74.0 Estimated GFR (Non- 68.5 63.8 BUN/Creatinine Ratio 23.0 17.1 10-20 Random Glucose 148 110 70-99 mg/dl Calcium Level 8.2 8.4 8.5-10.1 mg/dl Magnesium Level 2.2 1.8-2.4 mg/dl Thyroid Stimulating Hormone (TSH) 0.235 0.300-4.500 uIu/ml Free Thyroxine 1.58 0.80-1.60 ng/dl Total Bilirubin 1.3 0.2-1 mg/dl Direct Bilirubin 0.3 0-0.2 mg/dl Aspartate Amino Transf (AST/SGOT) 37 15-37 U/L Alanine Aminotransferase (ALT/SGPT) 37 12-78 U/L Alkaline Phosphatase 53 45-117 U/L Total Protein 6.4 6.4-8.2 gm/dl Albumin 3.4 3.4-5.0 gm/dl Globulin 3.0 2.5-4.0 gm/dl Albumin/Globulin Ratio 1.1 0.9-2 Assessment & Plan 09/24/17- s/p lap zoe- observation in telemetry - seems to be doing well. will plan d/c home if ok with medical team. Daughter will be staying with her. check in office next week.
[2017-09-24] MEDS: CLINDAMYCIN IV 600 MG in DEXTROSE 5% 50ML 50 ML IV SCH (06:36)
[2017-09-24] MEDS: ACETAMINOPHEN SOLN 325 MG/10.15 ML UDC PO PRN (06:36)
--- NOTE | 2017-09-24 07:11 | Consultant Recommendations ---
Focus Puller Recommendations Date of Service Sep 24, 2017. Focus Puller Recommendations Add postoperative first-degree AV block to problem list In the future, would admit to telemetry postoperatively for monitoring
--- NOTE | 2017-09-24 07:23 | Hospitalist Progress Note ---
Hospitalist Progress Note Date of Service Sep 24, 2017. (Todd Polanco PA-C) Subjective Pt evaluation today including: conversation w/ patient, chart review, lab review Pain: Patient denies pain This is a 77-year-old female who was admitted under observation yesterday for elective laparoscopic cholecystectomy. Patient is POD #1 Patient transferred to telemetry yesterday for postoperative first-degree AV block. This required no intervention. Telemetry reviewed over last 24 hours and reveals bradycardia in the 50s. Will check repeat ECG this morning before discharge and add postoperative first-degree AV block to problem list for past medical history. Patient denies any palpitations or chest pain this morning. No syncope or presyncope. Nausea has resolved. Patient denies any vomiting. No acute complaints. Constitutional: No fever, No chills Respiratory: No cough, No sputum, No wheezing, No shortness of breath, No dyspnea at rest, No hemoptysis Cardiovascular: No chest pain, No edema, No palpitations Abdomen: No pain, No nausea (Now resolved), No vomiting, No diarrhea Female : No hematuria Neurologic: No numbness/tingling, No vertigo Skin: No rash, No itch All Other Systems: Reviewed and Negative (Todd Polanco PA-C) Medications Current Inpatient Medications Medications (Trade) Dose Ordered Sig/Lionel Route Start Time Stop Time Status Last Admin Dose Admin Acetaminophen/ Hydrocodone Bitart ([place] 5/325 Tab) 1 tab Q4 PRN PO 09/23/17 09:30 10/07/17 09:29 Acetaminophen/ Hydrocodone Bitart ([place] 5/325 Tab) 2 tab Q4 PRN PO 09/23/17 09:30 10/07/17 09:29 Morphine Sulfate (MoRPHine SULFATE INJ) 2 mg Q4H PRN IV 09/23/17 09:30 10/07/17 09:29 Morphine Sulfate (MoRPHine SULFATE INJ) 4 mg Q4H PRN IV 09/23/17 09:30 10/07/17 09:29 Ondansetron HCl (Zofran Inj) 4 mg Q6H PRN IV 09/23/17 09:30 10/23/17 09:29 Levothyroxine Sodium (Synthroid Tab) 100 mcg DAILYBB PO 09/24/17 06:00 10/24/17 05:59 09/24/17 06:32 100 MCG Clindamycin Phosphate 600 mg/ Dextrose 54 ml @ 108 mls/hr Q8 IV 09/23/17 14:00 10/03/17 13:59 09/24/17 06:36 108 MLS/HR Miscellaneous (Iv Fluids Completed) 1 ea PRN PRN N/A 09/23/17 11:30 09/23/18 11:29 Acetaminophen (Tylenol Soln) 650 mg Q6H PRN PO 09/23/17 17:30 10/23/17 17:29 09/24/17 06:36 650 MG (Todd Polanco PA-C) Objective Vital Signs Date Time Temp Pulse Resp B/P (MAP) Pulse Ox O2 Delivery O2 Flow Rate FiO2 09/24/17 02:26 36.5 49 19 106/50 (68) 95 Room Air 09/24/17 00:00 36.6 53 21 116/50 (72) 95 Room Air 09/24/17 00:00 95 Room Air 09/23/17 19:35 36.4 57 16 102/47 (65) 95 Room Air 09/23/17 16:00 97 Room Air 09/23/17 15:35 51 20 119/72 (88) 97 Room Air 09/23/17 14:00 55 17 121/55 (77) 97 Room Air 09/23/17 13:00 53 18 125/61 (82) 97 Room Air 09/23/17 12:54 96 Room Air 09/23/17 12:02 49 14 113/59 (77) 96 Nasal Cannula 2.0 09/23/17 11:51 36.5 46 16 96 2.0 09/23/17 11:43 46 16 121/66 (84) 96 Room Air 09/23/17 11:11 46 16 132/67 (88) 97 Room Air 09/23/17 10:40 Nasal Cannula 2.0 09/23/17 10:40 36.5 45 16 132/75 (94) 97 Nasal Cannula 2.0 09/23/17 10:40 Nasal Cannula 2.0 09/23/17 10:20 36.2 50 20 123/84 99 Room Air 09/23/17 10:10 53 20 120/53 98 Room Air 09/23/17 10:00 54 16 127/56 100 Oxymask 10 09/23/17 09:50 59 16 122/59 100 Oxymask 10 09/23/17 09:43 36.2 76 16 133/68 100 Oxymask 10 (Todd Polanco PA-C) Physical Exam Notes: GENERAL : No acute distress EYES: No icterus, gaze conjugate NOSE: No evidence of epistaxis MOUTH: No lesions or candidiasis NECK: Supple LUNGS: CTA B/L, no wheezes, rales or rhonchi HEART: Regular, bradycardic in the 50s. No appreciation of ectopy or murmur ABDOMEN: Soft, NT, ND, BS Present EXTREMITIES: No LE edema, pedal pulses intact NEURO: A&OX3 (Todd Polanco PA-C) Laboratory Results Last 24 Hours Test 09/23/17 12:53 09/24/17 04:51 White Blood Count 3.15 K/uL 3.70 K/uL Red Blood Count 3.98 M/uL 3.98 M/uL Hemoglobin 11.2 g/dL 10.7 g/dL Hematocrit 33.4 % 33.2 % Mean Corpuscular Volume 83.9 fL 83.4 fL Mean Corpuscular Hemoglobin 28.1 pg 26.9 pg Mean Corpuscular Hemoglobin Concent 33.5 g/dl 32.2 g/dl Platelet Count 141 K/uL 133 K/uL Mean Platelet Volume 9.9 fL 9.9 fL Neutrophils (%) (Auto) 51.5 % Lymphocytes (%) (Auto) 45.4 % Monocytes (%) (Auto) 2.2 % Eosinophils (%) (Auto) 0.3 % Basophils (%) (Auto) 0.3 % Neutrophils # (Auto) 1.62 K/uL Lymphocytes # (Auto) 1.43 K/uL Monocytes # (Auto) 0.07 K/uL Eosinophils # (Auto) 0.01 K/uL Basophils # (Auto) 0.01 K/uL RDW Standard Deviation 45.9 fL 45.1 fL RDW Coefficient of Variation 14.8 % 14.8 % Immature Granulocyte % (Auto) 0.3 % Immature Granulocyte # (Auto) 0.01 K/uL Sodium Level 140 mmol/L 141 mmol/L Potassium Level 3.9 mmol/L 4.6 mmol/L Chloride Level 108 mmol/L 110 mmol/L Carbon Dioxide Level 26 mmol/L 27 mmol/L Anion Gap 6.0 mmol/L 4.0 mmol/L Blood Urea Nitrogen 19 mg/dl 15 mg/dl Creatinine 0.82 mg/dl 0.87 mg/dl Est Creatinine Clear Calc Drug Dose 58.4 ml/min 55.0 ml/min Estimated GFR () 79.4 74.0 Estimated GFR (Non- 68.5 63.8 BUN/Creatinine Ratio 23.0 17.1 Random Glucose 148 mg/dl 110 mg/dl Calcium Level 8.2 mg/dl 8.4 mg/dl Magnesium Level 2.2 mg/dl Thyroid Stimulating Hormone (TSH) 0.235 uIu/ml Free Thyroxine 1.58 ng/dl Total Bilirubin 1.3 mg/dl Direct Bilirubin 0.3 mg/dl Aspartate Amino Transf (AST/SGOT) 37 U/L Alanine Aminotransferase (ALT/SGPT) 37 U/L Alkaline Phosphatase 53 U/L Total Protein 6.4 gm/dl Albumin 3.4 gm/dl Globulin 3.0 gm/dl Albumin/Globulin Ratio 1.1 (Todd Polanco PA-C) Assessment and Plan This is a 77 yo female that is POD #[address] Brock. Patient underwent general anesthesia and was found to be bradycardic postoperatively. EKG obtained at bedside and revealed 1st degree AV block with a QtC of 446. Patient reports family history of cardiac from AV block with her mother. Hemodynamically stable. Nausea but no vomiting. Pain generally controlled CHOLYCYSTITIS * POD #1 lap zoe - Dr. Brock * Afebrile * 4 trocar sites * No drains * Outpatient follow-up with Dr. Brock 1ST DEGREE AV BLOCK * New onset. Patient admits to previous hx of bradycardia post operatively but no other heart disease * Denies prior echocardiogram * No CAD * Telemetry reviewed with bradycardia in the 50s * Check ECG before discharge * Add postoperative first-degree AV block to problem list * Suggest admission to telemetry for future postoperative care HYPOTHYROIDISM * Continue levothyroxine * Outpatient management by Dr. Pro Parry NEUTROPENIA/LEUKOPENIA * Afebrile * No recent illness * Outpatient follow up with Dr. Dean GERD * No current s/s * Not on an outpatient PPI or H2 long * Outpatient followup DVT PROPHYLAXIS * SCDs * Ambulate as tolerated Thank you for including us in the care of this patient. Agree with discharge after EKG if no further findings. Please refer to Dr. Patino's addendum for further recommendations. (Todd Polanco PA-C) Reviewed: Pt Seen/Exam by Me (Brook Patino MD) History Physician [employer] supervision Note: I interviewed and examined the patient. Discussed with ADAN Polanco and agree with findings and plan as documented in the note. Any exceptions or clarifications are listed here: No further nausea. Remains with 1st degree AV block and SB on monitor. No lightheadedness, no headache. She denies chest pain or palpitations, denies shortness of breath. Has some postoperative abdominal pain but otherwise doing well. Vitals reviewed Gen: AAOx3, NAD HEENT: anicteric sclerae, EOMI CV: Regular rhythm, bradycardic, no mgr nl S1S2 Pulm: CTAB no wcr Abd: +BS soft, minimal tenderness at incision sites, ND no masses or hernias Ext: no edema, 2+ DP pulses Skin: no rashes, warm/dry Neuro: full strength throughout This patient is a 77-year-old female with a history of hypothyroidism, biliary dyskinesia, ankylosing spondylitis, LGL leukemia, here with laparoscopic cholecystectomy. With some sinus bradycardia and nausea postoperatively. Nausea resolved. Has benign 1st degree block, resting sinus bradycardia which is normal for her. -Blood counts are acceptable -Surgical management postoperatively as per Dr. Brock -Continue home levothyroxine -follow up with PCP after discharge Stable for dc to home today Documented By: Brook Patino (Brook Patino MD)
[2017-09-24 07:41] VITALS: BP 101/53; PULSE 48; TEMP 36.7; O2SAT 96
[2017-09-24 08:00] VITALS: O2SAT 95
--- NOTE | 2017-09-24 08:42 | Anesthesiology Progress Note ---
Anesthesia Post Op Note Date & Time Sep 24, 2017 at 08:40 Vital Signs Pain Intensity: 2.0 Vital Signs Past 12 Hours Date Time Temp Pulse Resp B/P (MAP) Pulse Ox O2 Delivery O2 Flow Rate FiO2 09/24/17 07:41 36.7 48 15 101/53 (69) 96 Room Air 09/24/17 02:26 36.5 49 19 106/50 (68) 95 Room Air 09/24/17 00:00 36.6 53 21 116/50 (72) 95 Room Air 09/24/17 00:00 95 Room Air Notes Mental Status: alert / awake / arousable, participated in evaluation Pt Amnestic to Procedure: Yes Nausea / Vomiting: adequately controlled, improving with treatment Pain: adequately controlled Airway Patency, RR, SpO2: stable & adequate BP & HR: stable & adequate Hydration State: stable & adequate Anesthetic Complications: no major complications apparent AV block found and pt being followed up by cardiology, otherwise uneventful anesthetic
[2017-09-24 09:50] VITALS: BP 101/53; PULSE 48; TEMP 36.7; O2SAT 95
--- NOTE | 2017-09-25 19:47 | DISCHARGE SUMMARY ---
PRIMARY DISCHARGE DIAGNOSES: 1. Biliary colic, chronic cholecystitis. 2. First-degree AV block, new onset. SECONDARY DISCHARGE DIAGNOSES: 1. Hypothyroidism. 2. Gastroesophageal reflux disease. 3. Neutropenia/leukopenia, chronic. PROCEDURE PERFORMED: Laparoscopic cholecystectomy. CONSULTATIONS: Tariq Koch hospitalist. HOSPITAL COURSE: The patient is a 77-year-old female with outpatient history consistent with biliary colic and dyskinesia, taken to the operating room for laparoscopic cholecystectomy. Procedure was well tolerated. Intraoperative findings and final pathology were consistent with chronic cholecystitis as well. Postoperatively, she had some bradycardia and on EKG was found to have first-degree heart block. She was transferred to telemetry for postoperative monitoring. The hospitalist had been consulted routinely. On postoperative day #1, she was doing well from a surgical standpoint. She remained asymptomatic from her heart block. Her abdomen was benign. She was tolerating oral analgesics and regular diet. She was stable for discharge home. DISCHARGE INSTRUCTIONS: Discharge home. Follow up with Dr. Brock's office in one week for suture removal. Follow up with her PCP for the new-onset heart block also within 1 week. DISCHARGE MEDICATIONS: [place] one to two tablets every six hours as needed. Continue her home medications of Vitamin B12 1000 mcg daily, Restasis eyedrops b.i.d., levothyroxine 100 mcg daily and vitamin D 4000 units daily. MTDD
== END 2017-09-24 10:31 | disposition home or self-care (01) ==
LOC: C.ACU 06:01 → C.MSN 09:24 → ENRESERV 10:10 → CANRESERV 12:01 → ENRESERV 12:01 → C.2E 12:29
PROVIDERS: ADMIT Surgery; ATTEND Surgery
DX: K80.12 Calculus of gallbladder with acute and chronic cholecystitis without obstruction (principal); K82.8 Other specified diseases of gallbladder; I44.0 Atrioventricular block, first degree; E03.9 Hypothyroidism, unspecified; K21.0 Gastro-esophageal reflux disease with esophagitis; E78.5 Hyperlipidemia, unspecified; Z88.0 Allergy status to penicillin; Z88.2 Allergy status to sulfonamides; Z88.8 Allergy status to other drugs, medicaments and biological substances; M19.90 Unspecified osteoarthritis, unspecified site; Z82.49 Family history of ischemic heart disease and other diseases of the circulatory system

== ENCOUNTER 2023-07-24 08:23 | Observation (INO) ==
[2023-07-24] MEDS: SODIUM CHLORIDE 0.9% 500 ML IV SCH (09:06)
--- NOTE | 2023-07-24 09:18 | Emergency Department Note ---
History of Present Illness General Chief complaint: Illness Stated complaint: DIZZINESS Time Seen by Provider: 07/24/23 08:44 Source: patient, RN notes reviewed, old records reviewed (05/11/23-outpatient heme-onc note for follow-up for her leukemia) and other (I also did talk to her caregiver who was at the bedside) Mode of arrival: ambulatory Limitations: no limitations History of Present Illness This patient is a 83-year-old female who has chronic large granular lymphocytic leukemia, comes in after an episode this morning around 7:00 where she did not feel well. She felt fine yesterday and around 7:00 she says she just felt very weak and short of breath it was nonfocal she denied any spinning she may have had some near syncope. No diaphoresis. No chest pain. She has had chronic shortness of breath for the last 2 years off-and-on she felt like she was worse today. No fall no focal numbness or weakness no dysuria hematuria . no cough . no fever. no runny nose.no headache .no blood or melena in her stool. She had labs checked earlier this week which look good. No history of blood clots she is on no blood thinners Home Medications Medication Instructions Recorded Confirmed Type cyanocobalamin (vitamin B-12) 1,000 mcg PO QAM 10/07/18 07/24/23 History 1,000 mcg capsule cyclosporine 0.05 % eye drops in a 1 drp ophthalmic (eye) Q12H 04/12/20 07/24/23 History dropperette (Restasis) cholecalciferol (vitamin D3) 100 100 mcg PO QAM 05/16/21 07/24/23 History mcg (4,000 unit) capsule methotrexate sodium 2.5 mg tablet 15 mg PO WK 08/08/21 07/24/23 History levothyroxine 100 mcg tablet 100 mcg PO QAM 04/10/23 07/24/23 History (Synthroid) folic acid 400 mcg tablet 0.4 mg PO DAILY 07/24/23 07/24/23 History Allergies Allergy/AdvReac Type Severity Reaction Status Date / Time Penicillins Allergy Intermediate Hives Verified 07/24/23 10:38 Sulfa (Sulfonamide AdvReac Intermediate Vomiting Verified 07/24/23 10:38 Antibiotics) Past Med/Surg History Problem List (Updated 07/24/23 @ 14:13 by Alexei Saucedo MD) Dizziness (Acute) Neutropenia (Acute) Weakness (Acute) Syncope BECERRA (dyspnea on exertion) Encounter for pre-operative examination Mitral regurgitation Benign positional vertigo Dizziness, nonspecific (Acute) Multiple lung nodules on CT annual CT scan (most recent July 2019) T-cell large granular lymphocytic leukemia (Acute ~11/04/22) dr coombs Vitamin D deficiency (Acute) Neutrophil dysfunction (Acute) Lichen sclerosus et atrophicus (Acute) Ileitis (Acute) Hypothyroidism (Acute) Hyperlipidemia (Acute) History of diverticulitis of colon (Acute) HLA-B27 spondyloarthropathy (Acute) Diarrhea (Acute) Chronic reflux esophagitis (Acute) AV block, 1st degree (Acute) Chronic cholecystitis Medical History Anemia Hyperlipemia AV block, 1st degree Slow to wake up after anesthesia Ankylosing spondylitis Surgical History History of open reduction and internal fixation (ORIF) procedure LUE - as a child x 2 History of esophagogastroduodenoscopy (EGD) History of colonoscopy History of vaginal surgery bladder and uterine suspension with mesh History of dilation and curettage Hx of breast biopsy History of cholecystectomy Hx of tonsillectomy History of oral surgery Hx of cataract surgery History of biopsy bone marrow Family History Sister Colon cancer Dementia Granulomatous arteritis Brain Myocardial infarction Father Myocardial infarction Mother Loaiza Frank attack Denies family history of Ovarian cancer Prostate cancer Breast cancer Social History Smoking Status: Never smoker Second Hand Exposure: No; Do You Dip or Chew Tobacco: No; Hx Alcohol Use: Yes Alcohol type: wine Hx Substance Use: No Preferred Language: Australian Communication Ability: Effective Visual Impairment: No Limitations Hearing Ability: Normal Warp Preparer Required: No Beliefs That Will Affect Care: None marital status: Current Living Situation: Alone current occupational status: retired Feels Safe at Home: Yes Childhood Exposure to Second-Hand Smoke: No Dental Care, Regularly: Yes Physical Activity Frequency: 1-2 Times per Week Seatbelt Use: always Sunscreen Use: No Assistive Devices: Glasses Review of Systems A total of 10 systems reviewed and were otherwise negative Physical Exam Vital Signs Vital Signs - 24 hr 07/24/23 08:12 07/24/23 08:12 07/24/23 08:38 Temperature 36.9 C Temperature Source Oral Pulse Rate - Lying Pulse Rate - Sitting Pulse Rate - Standing Pulse Rate 60 63 Pulse Rate [Apical] Pulse Rate from SpO2 Sensor Pulse Rhythm [Apical] Respiratory Rate 16 Respiratory Effort / Characteristics Respiratory Depth Respiratory Pattern Blood Pressure - Lying Blood Pressure - Sitting Blood Pressure- Standing Blood Pressure 94/53 L Blood Pressure [Right Arm] Blood Pressure Mean 66 Blood Pressure Mean [Right Arm] Pulse Oximetry 95 Oxygen Delivery Method Room Air Sepsis Recent Fever Within 48 Hours No Sepsis New/Unexplained Change in Mental Status No Sepsis Action Taken by Nursing No Action Required 07/24/23 08:39 07/24/23 08:43 07/24/23 08:56 Temperature Temperature Source Pulse Rate - Lying Pulse Rate - Sitting Pulse Rate - Standing Pulse Rate 64 62 Pulse Rate [Apical] Pulse Rate from SpO2 Sensor Pulse Rhythm [Apical] Respiratory Rate 15 13 Respiratory Effort / Characteristics Respiratory Depth Respiratory Pattern Blood Pressure - Lying Blood Pressure - Sitting Blood Pressure- Standing Blood Pressure Blood Pressure [Right Arm] Blood Pressure Mean Blood Pressure Mean [Right Arm] Pulse Oximetry Oxygen Delivery Method Room Air Sepsis Recent Fever Within 48 Hours Sepsis New/Unexplained Change in Mental Status Sepsis Action Taken by Nursing 07/24/23 09:00 07/24/23 09:10 07/24/23 09:20 Temperature Temperature Source Pulse Rate - Lying Pulse Rate - Sitting Pulse Rate - Standing Pulse Rate 67 73 64 Pulse Rate [Apical] Pulse Rate from SpO2 Sensor Pulse Rhythm [Apical] Respiratory Rate 17 20 14 Respiratory Effort / Characteristics Respiratory Depth Respiratory Pattern Blood Pressure - Lying Blood Pressure - Sitting Blood Pressure- Standing Blood Pressure Blood Pressure [Right Arm] Blood Pressure Mean Blood Pressure Mean [Right Arm] Pulse Oximetry 96 Oxygen Delivery Method Sepsis Recent Fever Within 48 Hours Sepsis New/Unexplained Change in Mental Status Sepsis Action Taken by Nursing 07/24/23 10:31 07/24/23 10:40 07/24/23 11:17 Temperature Temperature Source Pulse Rate - Lying Pulse Rate - Sitting Pulse Rate - Standing Pulse Rate 75 64 Pulse Rate [Apical] 60 Pulse Rate from SpO2 Sensor Pulse Rhythm [Apical] Regular Respiratory Rate 12 19 20 Respiratory Effort / Characteristics Non-Labored Spontaneous Respiratory Depth Normal Respiratory Pattern Regular Blood Pressure - Lying Blood Pressure - Sitting Blood Pressure- Standing Blood Pressure Blood Pressure [Right Arm] 134/61 Blood Pressure Mean Blood Pressure Mean [Right Arm] 85 Pulse Oximetry 99 Oxygen Delivery Method Room Air Sepsis Recent Fever Within 48 Hours Sepsis New/Unexplained Change in Mental Status Sepsis Action Taken by Nursing 07/24/23 12:26 07/24/23 12:35 07/24/23 12:43 Temperature Temperature Source Pulse Rate - Lying Pulse Rate - Sitting Pulse Rate - Standing Pulse Rate 70 67 67 Pulse Rate [Apical] Pulse Rate from SpO2 Sensor Pulse Rhythm [Apical] Respiratory Rate 17 14 Respiratory Effort / Characteristics Respiratory Depth Respiratory Pattern Blood Pressure - Lying Blood Pressure - Sitting Blood Pressure- Standing Blood Pressure Blood Pressure [Right Arm] Blood Pressure Mean Blood Pressure Mean [Right Arm] Pulse Oximetry Oxygen Delivery Method Sepsis Recent Fever Within 48 Hours Sepsis New/Unexplained Change in Mental Status Sepsis Action Taken by Nursing 07/24/23 12:43 07/24/23 12:46 07/24/23 12:48 Temperature Temperature Source Pulse Rate - Lying Pulse Rate - Sitting Pulse Rate - Standing Pulse Rate 69 69 Pulse Rate [Apical] Pulse Rate from SpO2 Sensor Pulse Rhythm [Apical] Respiratory Rate 22 Respiratory Effort / Characteristics Respiratory Depth Respiratory Pattern Blood Pressure - Lying Blood Pressure - Sitting Blood Pressure- Standing Blood Pressure 99/62 L Blood Pressure [Right Arm] Blood Pressure Mean 78 Blood Pressure Mean [Right Arm] Pulse Oximetry Oxygen Delivery Method Sepsis Recent Fever Within 48 Hours Sepsis New/Unexplained Change in Mental Status Sepsis Action Taken by Nursing 07/24/23 12:54 07/24/23 12:56 07/24/23 13:00 Temperature Temperature Source Pulse Rate - Lying 62 Pulse Rate - Sitting 65 Pulse Rate - Standing 87 Pulse Rate 78 Pulse Rate [Apical] 71 Pulse Rate from SpO2 Sensor Pulse Rhythm [Apical] Respiratory Rate 23 16 Respiratory Effort / Characteristics Non-Labored Spontaneous Respiratory Depth Normal Respiratory Pattern Regular Blood Pressure - Lying 133/56 L Blood Pressure - Sitting 126/63 Blood Pressure- Standing 99/62 L Blood Pressure Blood Pressure [Right Arm] Blood Pressure Mean Blood Pressure Mean [Right Arm] Pulse Oximetry 98 Oxygen Delivery Method Room Air Sepsis Recent Fever Within 48 Hours Sepsis New/Unexplained Change in Mental Status Sepsis Action Taken by Nursing 07/24/23 13:00 07/24/23 13:33 Temperature Temperature Source Pulse Rate - Lying Pulse Rate - Sitting Pulse Rate - Standing Pulse Rate 71 71 Pulse Rate [Apical] Pulse Rate from SpO2 Sensor 71 70 Pulse Rhythm [Apical] Respiratory Rate 21 19 Respiratory Effort / Characteristics Respiratory Depth Respiratory Pattern Blood Pressure - Lying Blood Pressure - Sitting Blood Pressure- Standing Blood Pressure Blood Pressure [Right Arm] Blood Pressure Mean Blood Pressure Mean [Right Arm] Pulse Oximetry 99 96 Oxygen Delivery Method Sepsis Recent Fever Within 48 Hours Sepsis New/Unexplained Change in Mental Status Sepsis Action Taken by Nursing General: Well developed well nourished older female who appears in no acute distress, breathing comfortably on room air. Normal speech HEENT: Normal cephalic atraumatic. Pupils are equal round and reactive to light. Extraocular movements are intact. Oropharynx is pink with moist mucous membranes. No swelling of the mouth lips or tongue. Neck: Supple with a midline trachea. No meningeal signs or stiffness, no JVD or bruits. No Stridor. Chest: Clear to auscultation bilaterally. No wheezes or rhonchi. No increased work of breathing. Heart: Regular rate and rhythm without murmurs or gallops. Abdomen: Soft nontender, nondistended without rebound guarding or rigidity. Extremities: No cyanosis clubbing or edema. No calf tenderness or assymetry Spine/Back. Non tender to palpation. No CVA tenderness Skin: Good turgor without rashes. Neurologic exam: Cranial nerves two through 12 are intact. Motor and sensation are intact and symmetrical throughout. Course Administered Medications Discontinued Medications Sodium Chloride (Nss) 500 mls @ 999 mls/hr IV .Q31M FAISAL Stop: 07/24/23 09:30 Last Infusion: 07/24/23 11:27 Dose: Infused Documented By: Admin: 07/24/23 09:06 Dose: 999 mls/hr Documented By: SYLVAIN Medical Decision Making Differential Diagnosis Weakness, arrhythmia, electrolyte or metabolic abnormality, anemia, complication related to her cancer Medical Records Attestation: I reviewed the patient's medical records. Home Medications Current Medication List: was personally reviewed by me Laboratory Data Attestation: I reviewed the patient's lab results. 07/24/23 09:21 07/24/23 09:21 Lab Results 07/24/23 07/24/23 07/24/23 Range/Units 09:07 09:21 10:37 WBC 4.91 (4.8-10.8) K/ul RBC 3.38 L (4.20-5.40) M/uL Hgb 10.4 L (12.0-16.0) g/dl Hct 31.1 L (37.0-47.0) % MCV 92.0 (80.0-100.0) fL MCH 30.8 (25.0-34.0) pg MCHC 33.4 (32.0-36.0) g/dL RDW Std Deviation 54.6 H (36.4-46.3) fL RDW Coeff of [place]al[place] 16.2 H (11.5-14.5) % Plt Count 201 (130-400) K/uL MPV 10.0 (9.4-12.4) fL Neutrophils % (Manual) 17 % Lymphocytes % (Manual) 20 % Monocytes % (Manual) 5 % Basophils % (Manual) 2 % Neutrophils # (Manual) 0.83 L (1.40-6.50) K/uL Total Absolute Neuts 0.83 L* (1.4-6.5) K/uL Lymphocytes # (Manual) 0.98 L (1.2-3.4) K/uL Total Abs Lymphocytes 3.73 H (1.2-3.4) K/uL Monocytes # (Manual) 0.25 (0.11-0.59) K/uL Basophils # (Manual) 0.10 (0-0.2) K/uL Large Granular Lymphs 56 % # Lrg Granular Lymphs 2.75 K/uL Ovalocytes 1+ PT 11.2 (9.0-12.0) Seconds INR 1.0 (0.9-1.1) D-Dimer 420 (0-500) ug/L FEU Sodium 141 (136-145) mmol/L Potassium 4.1 (3.5-5.1) mmol/L Chloride 107 (98-107) mmol/L Carbon Dioxide 29 (21-32) mmol/L Anion Gap 5 (3-11) BUN 17 (6-23) mg/dl Creatinine 0.76 (0.6-1.2) mg/dl Est Cr Clr Drug Dosing 55.6 ml/min Est GFR ( Amer) 83.5 ml/min Est GFR (Non-Af Amer) 72.0 ml/min BUN/Creatinine Ratio 22.4 H (10-20) Glucose 100 H (70-99(Fasting)) mg/dl Calcium 9.1 (8.6-10.3) mg/dl Magnesium 2.2 (1.7-2.4) mg/dl Total Bilirubin 1.9 H (0.2-1.0) mg/dl AST 28 (13-39) U/L ALT 23 (7-52) U/L Alkaline Phosphatase 65 (34-104) U/L Troponin I High Sens 6.5 (0-14) pg/ml Total Protein 6.7 (6.0-8.3) gm/dl Albumin 4.2 (3.4-5.0) gm/dl Globulin 2.5 (2.5-4.0) gm/dl Albumin/Globulin Ratio 1.7 (0.9-2) TSH 0.506 (0.300-4.500) uIu/ml Urine Color Yellow Urine Appearance Clear (Clear) Urine pH 6.5 (4.5-7.5) Ur Specific [place] 1.010 (1.000-1.030) Urine Protein Negative (Negative) Urine Glucose (UA) Negative (Negative) Urine Ketones Negative (Negative) Urine Blood Negative (Negative) Urine Nitrite Negative (Negative) Urine Bilirubin Negative (Negative) Urine Urobilinogen Negative (Negative) Ur Leukocyte Esterase Trace H (Negative) Urine WBC (Auto) 0-5 (0-5) /hpf Urine RBC (Auto) 0-2 (0-2) /hpf U Hyaline Cast (Auto) 0-2 (0-2) /lpf U Epithel Cells (Auto) 3-5 H (0-2) /hpf Urine Bacteria (Auto) None Seen (None Seen) Adenovirus (PCR) Not Detected (NotDetected) B. pertussis DNA (PCR) Not Detected (NotDetected) B.parapertussis DNA PCR Not Detected (NotDetected) C. pneumoniae DNA (PCR) Not Detected (NotDetected) Coronavirus OC43 (PCR) Not Detected (NotDetected) Coronavirus HKU1 (PCR) Not Detected (NotDetected) Coronavirus 229E (PCR) Not Detected (NotDetected) SARS-CoV-2 (PCR) Not Detected (NotDetected) Coronavirus NL63 (PCR) Not Detected (NotDetected) Human Metapneumovir PCR Not Detected (NotDetected) Influenza Type A (PCR) Not Detected (NotDetected) Influenza Type B (PCR) Not Detected (NotDetected) M. pneumoniae (PCR) Not Detected (NotDetected) Parainfluenza 1 (PCR) Not Detected (NotDetected) Parainfluenza 2 (PCR) Not Detected (NotDetected) Parainfluenza 3 (PCR) Not Detected (NotDetected) Parainfluenza 4 (PCR) Not Detected (NotDetected) RSV (PCR) Not Detected (NotDetected) Entero/Rhino (PCR) Not Detected (NotDetected) Imaging Data Attestation: I personally reviewed and interpreted this imaging study as follows: My Impression: Chest x-rayno acute infiltrate, failure, pneumothorax seen. Radiologist's Impression: Chest X-Ray 07/24/23 08:56 XR chest 1V portable CLINICAL HISTORY: weakness TECHNIQUE: Single frontal radiograph of the chest was obtained. Comparison: Comparison is made to chest radiograph 05/29/2022 FINDINGS: No lines and tubes are seen. Calcified aortic knob is seen. The lungs are clear. No evidence of pleural effusion or pneumothorax. IMPRESSION: No acute chest disease. ACT 112: Negative or not required by law. Electronically signed by: Damian Crisostomo M.D. 07/24/2023 9:[address] 07/24/23 10:53 CT OF THE HEAD WITHOUT CONTRAST CLINICAL HISTORY: weakness, dizziness COMPARISON STUDY: Head CT May 29, 2022. CT DOSE: 547.75 mGy.cm TECHNIQUE: Helical axial images of the head were obtained without IV contrast. Automated exposure control was utilized for the study. A dose lowering technique was utilized adhering to the principles of ALARA. FINDINGS: No acute intracranial hemorrhage, midline shift or mass effect is present. The ventricular system is unremarkable. The basal cisterns are patent. No extra-axial collections are present. There are no findings to suggest acute dural sinus thrombosis or acute territorial infarct. Cortical calcification within the bilateral occipital lobes, left greater than right, is again noted. This has minimally increased since prior exam but is not acute. There is mild associated volume loss. No significant calvarial abnormalities are present. Visualized portions of the sinuses and mastoid air cells are clear. IMPRESSION: No acute intracranial findings. ACT 112: Negative or not required by law. Electronically signed by: Juan Moon M.D. 07/24/2023 11:58 AM ECG Data Attestation: I personally reviewed and interpreted this ECG as follows: Indication: + weakness Rate (beats per minute): 63 Rhythm: + normal sinus ECG Intervals/blocks: + Normal QRS, + Normal QT and + Normal [place] ECG [place]: + Normal ECG ST segments: + Normal ST segments ECG Findings: + Other (Nonspecific T wave); no PACs or no PVCs Comparison ECG Date: from (05/29/2022) Change: no significant change MDM Narrative This patient comes in as described above. She was placed on panel monitor and C3 she had episode where she felt very weak diffusely she has a normal neurologic exam she also may have had some shortness of breath a full workup was obtained. IV access was established and she was hydrated with IV normal saline. I reviewed old records. EKG shows no ischemic changes or ectopy. The she has no fever or white count to suggest infection. she is slightly neutropenic in the 800s but she has no source of infection and looking back through her labs she tends to run on the low side due to her chronic leukemia. She has no acute electrolyte or metabolic abnormality. She has no focal neurologic deficits and the CAT scan of the head shows no focal findings acutely. D-dimer is negative and a low pretest probably said makes PE highly unlikely. Chest x-ray was clear and did not show pneumonia. Urinalysis does not suggest a UTI. She did receive IV fluids. She still feels weak and off and does not think she can go home she was able to get up and go to the bathroom but had to have assistance. I have discussed the case with the [facility] hospitalist and the patient will be seen for these measures Continuous cardiac monitoring: Orders placed in EMR for continuous panel monitor: Upon my evaluation patient noted to be in normal sinus rhythm with a rate of 65 Impression & Plan Weakness, T-cell large granular lymphocytic leukemia, Neutropenia, Dizziness Discharge Plan Visit Data Chief Complaint: Illness Stated Complaint: DIZZINESS ED Provider: Alexei Saucedo Discharge Problem: Weakness, T-cell large granular lymphocytic leukemia, Neutropenia, Dizziness Forms Stand Alone Forms: My [facility] Prescriptions Prescriptions: No Action methotrexate sodium 2.5 mg tablet 15 mg PO WK Rx Instructions: TAKES ON THURSDAYS. levothyroxine [Synthroid] 100 mcg tablet 100 mcg PO QAM Patient Comments: pt states taking 90mcg cyanocobalamin (vitamin B-12) 1,000 mcg capsule 1,000 mcg PO QAM cyclosporine [Restasis] 0.05 % Dropperette 1 drp OPHTHALMIC (EYE) Q12H Vitamin D3 100 mcg (4,000 unit) Capsule 100 mcg PO QAM folic acid 400 mcg Tablet 0.4 mg PO DAILY Referrals Referrals: Pro,Apolinar Herman MD [Primary Care Provider] - Discharge Problem: Neutropenia Qualifiers: Neutropenia type: unspecified Qualified Code(s): D70.9 - Neutropenia, unspecified
[2023-07-24 09:39] LABS: Hematocrit (blood only) 31.1 % (37.0-47.0); Hemoglobin 10.4 g/dl (12.0-16.0); Mean Corpuscular Hemoglobin 30.8 pg (25.0-34.0); Mean Corpuscular Hgb Conc 33.4 g/dL (32.0-36.0); Platelet Count 201 K/uL (130-400); RDW Coefficient of Variation 16.2 % (11.5-14.5); RDW Standard Deviation 54.6 fL (36.4-46.3); Red Blood Count 3.38 M/uL (4.20-5.40); White Blood Count 4.91 K/ul (4.8-10.8)
[2023-07-24 09:58] LABS: Albumin Globulin Ratio 1.7 (0.9-2); Albumin Level 4.2 gm/dl (3.4-5.0); BUN Creatinine Ratio 22.4 (10-20); Bilirubin,Total 1.9 mg/dl (0.2-1.0); Calcium 9.1 mg/dl (8.6-10.3); Creatinine Clr Calc Pharmacy 55.6 ml/min; Est GFR (African American) 83.5 ml/min; Globulin 2.5 gm/dl (2.5-4.0); Magnesium 2.2 mg/dl (1.7-2.4); Potassium 4.1 mmol/L (3.5-5.1); Total Protein 6.7 gm/dl (6.0-8.3)
--- NOTE | 2023-07-24 10:00 | XRay Report ---
XR chest 1V portable CLINICAL HISTORY: weakness TECHNIQUE: Single frontal radiograph of the chest was obtained. Comparison: Comparison is made to chest radiograph 05/29/2022 FINDINGS: No lines and tubes are seen. Calcified aortic knob is seen. The lungs are clear. No evidence of pleur al effusion or pneumothorax. IMPRESSION: No acute chest disease. ACT 112: Negative or not required by law. Electronically signed by: Damian Crisostomo M.D. 07/24/2023 9:58 AM
[2023-07-24 10:04] LABS: Troponin I High Sensitivity 6.5 pg/ml (0-14)
[2023-07-24 10:13] LABS: Thyroid Stimulating Hormone 0.506 uIu/ml (0.300-4.500)
[2023-07-24 10:17] LABS: Adenovirus PCR Not Detected (NotDetected); Bordetella parapertussis PCR Not Detected (NotDetected); Bordetella pertussis PCR Not Detected (NotDetected); Chlamydia pneumoniae PCR Not Detected (NotDetected); Coronavirus 229E PCR Not Detected (NotDetected); Coronavirus CoV-2 (COVID19)PCR Not Detected (NotDetected); Coronavirus HKU1 PCR Not Detected (NotDetected); Coronavirus NL63 PCR Not Detected (NotDetected); Coronavirus OC43PCR Not Detected (NotDetected); Human Metapneumovirus PCR Not Detected (NotDetected); Influenza A PCR Not Detected (NotDetected); Influenza B PCR Not Detected (NotDetected); Mycoplasma pneumoniae PCR Not Detected (NotDetected); Parainfluenza Virus 1 PCR Not Detected (NotDetected); Parainfluenza Virus 2 PCR Not Detected (NotDetected); Parainfluenza Virus 3 PCR Not Detected (NotDetected); Parainfluenza Virus 4 PCR Not Detected (NotDetected); Respiratory Syncytial VirusPCR Not Detected (NotDetected); Rhinovirus/Enterovirus PCR Not Detected (NotDetected)
[2023-07-24 10:23] LABS: D Dimer 420 ug/L FEU (0-500); Prothrombin Time 11.2 Seconds (9.0-12.0)
[2023-07-24 10:28] LABS: ALC (manual) 3.73 K/uL (1.2-3.4); ANC (manual) 0.83 K/uL (1.4-6.5); Basophils % (manual) 2 %; Large Granular Lymph # (manua 2.75 K/uL; Large Granular Lymph % (manual) 56 %; Lymphocytes # (manual) 0.98 K/uL (1.2-3.4); Lymphocytes % (manual) 20 %; Monocytes # (manual) 0.25 K/uL (0.11-0.59); Monocytes % (manual) 5 %; Neutrophils # (manual) 0.83 K/uL (1.40-6.50); Neutrophils % (manual) 17 %; Ovalocytes 1+
[2023-07-24 10:52] LABS: Appearance Urine Clear (Clear); Bacteria Urine Automated None Seen (None Seen); Bilirubin Urine Negative (Negative); Blood Urine Negative (Negative); Cast Urine Automated 0-2 /lpf (0-2); Color Urine Yellow; Glucose Urine UA Negative (Negative); Ketones Urine Negative (Negative); Leukocyte Esterase Urine Trace (Negative); Nitrite Urine Negative (Negative); Protein Urine Negative (Negative); RBC Urine Automated 0-2 /hpf (0-2); Urobilinogen Urine Negative (Negative); WBC Urine Automated 0-5 /hpf (0-5); pH Urine 6.5 (4.5-7.5)
--- NOTE | 2023-07-24 11:59 | CT Scan Report ---
CT OF THE HEAD WITHOUT CONTRAST CLINICAL HISTORY: weakness, dizziness COMPARISON STUDY: Head CT May 29, 2022. CT DOSE: 547.75 mGy.cm TECHNIQUE: Helical axial images of the head were obtained without IV contrast. Automated exposure con trol was utilized for the study. A dose lowering technique was utilized adhering to the principles o f ALARA. FINDINGS: No acute intracranial hemorrhage, midline shift or mass effect is present. The ventricular system is unremarkable. The basal cisterns are patent. No extra-axial collections are present. There are no findings to suggest acute dural sinus thrombosis or acute territorial infarct. Cortical calcif ication within the bilateral occipital lobes, left greater than right, is again noted. This has minim ally increased since prior exam but is not acute. There is mild associated volume loss. No significan t calvarial abnormalities are present. Visualized portions of the sinuses and mastoid air cells are c lear. IMPRESSION: No acute intracranial findings. ACT 112: Negative or not required by law. Electronically signed by: Juan Moon M.D. 07/24/2023 11:58 AM
--- NOTE | 2023-07-24 12:28 | Electrocardiogram Report ---
Test Reason : Blood Pressure : / mmHG Vent. Rate : 063 BPM Atrial Rate : 063 BPM P-R Int : 192 ms QRS Dur : 082 ms QT Int : 416 ms P-R-T Axes : 056 039 -01 degrees QTc Int : 425 ms Sinus rhythm with occasional Premature ventricular complexes Diffuse Minor Nonspecific T wave abnormality Abnormal ECG When compared with ECG of 29-MAY-2022 09:51, Premature ventricular complexes are now Present Confirmed by Fabian Isidro ([id number]) on 07/24/2023 12:28:05 PM Referred By: Confirmed By:Fabian Isidro
--- NOTE | 2023-07-24 13:54 | History & Physical Report ---
Date of Service July 24, 2023 Assessment & Plan (1) Dizziness: Plan: -Admit to Med/tele -Currently stable but with persistent vertigo/dizziness -Had acute onset of dizziness/vertigo/ambulatory dysfunction at approximately 0700 this am -Was asymptomatic upon waking at 0600 -Patient has a previous hx of vertigo/BPPV 4 years ago with her Leukemia diagnosis, noted to be neutropenic today but has been afebrile and with other cell lines stable -Cannot rule out CVA at this time, will continue the follow workup: >CTA of the head/neck >MRI brain wo con >TTE -Patient has had multiple episodes of non-bloody diarrhea over the past 48 hours >Will obtain Stool studies and C. diff PCR -S/P 500 mL NSS in the ED, will give another 1L LR on admission as she appears dehydrated -No signs of infection, WBC WNL, afebrile, clear CXR and UA -Cardiac workup has been unremarkable, continue to monitor on tele for now -Will allow permissive HTN until workup is complete -Q4h neuro checks, fall/aspiration precautions -Bedside dysphagia screen, will give a dose of meclizine and 324 mg Aspirin if she passes and monitor for improvement -PT/OT consults -PRN zofran for nausea/vomiting -Clear liquid diet, advance as tolerate -AM CBC, CMP, mag, PT/INR, A1c, Lipid panel (2) Neutropenia: Plan: -Total absolute neutrophil count of 0.83 today -Has been afebrile -All other cell lines are currently stable -Likely due to her methotrexate use -Hold methotrexate for now -Neutropenic precautions -Will consult oncology as she [facility] (3) Diarrhea: Plan: -Follow stool studies (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 She was noted to be hypotensive on arrival at 94/53 on arrival but otherwise stable. Labs were significant for an absolute neutrophil count of 0.83, total bili of 1.9 (near her baseline), UA with trace leukocyte esterase and 3-5 epithelial cells, and full respiratory biofire negative. CT of the head/brain wo on and CXR were read as negative for acute findings. Prior to admission the patient was given 500 mL NSS. At the time of the exam the patient was lying in bed in no acute distress with her 24/7 caregiver bedside, history was obtained from both. Patient was initially in her normal state of health when she first woke around 0600 this am. She was getting ready for the day around 0700 when she had acute onset of dizziness and the sensation that "the right side of my brain was getting pulled out of my head". She denies the room spinning but has felt very off balance since symptoms started. She does feel as though changing positions or moving her head exacerbates the symptoms. She had a hx of vertigo prior to her diagnosis of Leukemia approximately 4 years ago. She is not on antihypertensives or diuretics. Had had approximately 3 episodes daily of non-bloody diarrhea, denies recent antibiotic use. No recent fever, chills, chest pain, changes in her chronic SOB, abd pain, nausea, vomiting, dysuria, hematuria, melena, LE swellin g, and recent trauma. She is a DNR/DNI and her daughter is her POA. Please refer to Dr. Johnson's attestation for any changes to the treatment plan Allergies Allergy/AdvReac Type Severity Reaction Status Date / Time Penicillins Allergy Intermediate Hives Verified 07/24/23 10:38 Sulfa (Sulfonamide AdvReac Intermediate Vomiting Verified 07/24/23 10:38 Antibiotics) Home Medications Medication Instructions Recorded Confirmed Type cyanocobalamin (vitamin B-12) 1,000 mcg PO QAM 10/07/18 07/24/23 History 1,000 mcg capsule cyclosporine 0.05 % eye drops in a 1 drp ophthalmic (eye) Q12H 04/12/20 07/24/23 History dropperette (Restasis) cholecalciferol (vitamin D3) 100 100 mcg PO QAM 05/16/21 07/24/23 History mcg (4,000 unit) capsule methotrexate sodium 2.5 mg tablet 15 mg PO WK 08/08/21 07/24/23 History levothyroxine 100 mcg tablet 100 mcg PO QAM 04/10/23 07/24/23 History (Synthroid) folic acid 400 mcg tablet 0.4 mg PO DAILY 07/24/23 07/24/23 History Past Med/Surg History Problem List (Updated 07/24/23 @ 14:13 by Alexei Saucedo MD) Dizziness (Acute) Neutropenia (Acute) Weakness (Acute) Syncope BECERRA (dyspnea on exertion) Encounter for pre-operative examination Mitral regurgitation Benign positional vertigo Dizziness, nonspecific (Acute) Multiple lung nodules on CT annual CT scan (most recent July 2019) T-cell large granular lymphocytic leukemia (Acute ~11/04/22) dr coombs Vitamin D deficiency (Acute) Neutrophil dysfunction (Acute) Lichen sclerosus et atrophicus (Acute) Ileitis (Acute) Hypothyroidism (Acute) Hyperlipidemia (Acute) History of diverticulitis of colon (Acute) HLA-B27 spondyloarthropathy (Acute) Diarrhea (Acute) Chronic reflux esophagitis (Acute) AV block, 1st degree (Acute) Chronic cholecystitis Medical History Anemia Hyperlipemia AV block, 1st degree Slow to wake up after anesthesia Ankylosing spondylitis Surgical History History of open reduction and internal fixation (ORIF) procedure LUE - as a child x 2 History of esophagogastroduodenoscopy (EGD) History of colonoscopy History of vaginal surgery bladder and uterine suspension with mesh History of dilation and curettage Hx of breast biopsy History of cholecystectomy Hx of tonsillectomy History of oral surgery Hx of cataract surgery History of biopsy bone marrow Family History Sister Colon cancer Dementia Granulomatous arteritis Brain Myocardial infarction Father Myocardial infarction Mother Loaiza Frank attack Denies family history of Ovarian cancer Prostate cancer Breast cancer Social History Smoking Status: Never smoker Second Hand Exposure: No; Do You Dip or Chew Tobacco: No; Hx Alcohol Use: Yes Alcohol type: wine Hx Substance Use: No Preferred Language: Azerbaijani Communication Ability: Effective Visual Impairment: No Limitations Hearing Ability: Normal Driver 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 Beliefs That Will Affect Care: None marital status: Current Living Situation: Alone current occupational status: retired Feels Safe at Home: Yes Childhood Exposure to Second-Hand Smoke: No Dental Care, Regularly: Yes Physical Activity Frequency: 1-2 Times per Week Seatbelt Use: always Sunscreen Use: No Assistive Devices: Glasses Physical Exam Physical Exam: Physical Exam: General: In mild distress due to vertigo, stated age, non-toxic appearing HEENT: Normocephalic, atraumatic, no scleral icterus, pupils around round, symmetrical, and reactive to light, dry mucus membranes, trachea midline, no thyromegaly Chest/Pulm: No respiratory distress, symmetrical chest expansion, clear breath sounds throughout Cardiac: RRR, no murmurs noted Abdomen: Negative for ascites and bruising, normoactive bowel sounds, soft, non-tender to palpation throughout Musculoskeletal: Symmetrical and without signs of acute trauma, upper and lower extremities with full ROM, no atrophy, spasticity, or flaccidity Extremities: Radial, dorsalis pedis, and posterior tibial pulses are intact and symmetrical, no edema noted in the BL LE's Skin: Warm, dry, no rashes , lesions, or scars noted Neuro: Alert and oriented to person, place, month, year, no focal defects, CN II-XII tested horizontal nystagmus on EOM testing but otherwise WNL, negative cerebellar and pronator drift in the BL UE's, no tremors noted Psych: Polite and cooperative during the exam Results & Data Results & Data Vital Signs (Past 12 Hours) Vital Signs Temp Pulse Pulse Resp BP BP Pulse Ox 07/24/23 13:00 71 16 98 07/24/23 12:43 67 07/24/23 11:17 60 20 134/61 99 07/24/23 08:56 07/24/23 08:38 63 07/24/23 08:12 07/24/23 08:12 36.9 C 60 16 94/53 L 95 O2 Del Method 07/24/23 13:00 Room Air 07/24/23 12:43 07/24/23 11:17 Room Air 07/24/23 08:56 Room Air 07/24/23 08:38 07/24/23 08:12 Room Air 07/24/23 08:12 Laboratory Results Abnormal lab results 07/24/23 07/24/23 Range/Units 09:21 10:37 RBC 3.38 L (4.20-5.40) M/uL Hgb 10.4 L (12.0-16.0) g/dl Hct 31.1 L (37.0-47.0) % RDW Std Deviation 54.6 H (36.4-46.3) fL RDW Coeff of Rosalba 16.2 H (11.5-14.5) % Neutrophils # (Manual) 0.83 L (1.40-6.50) K/uL Total Absolute Neuts 0.83 L* (1.4-6.5) K/uL Lymphocytes # (Manual) 0.98 L (1.2-3.4) K/uL Total Abs Lymphocytes 3.73 H (1.2-3.4) K/uL BUN/Creatinine Ratio 22.4 H (10-20) Glucose 100 H (70-99(Fasting)) mg/dl Total Bilirubin 1.9 H (0.2-1.0) mg/dl Ur Leukocyte Esterase Trace H (Negative) U Epithel Cells (Auto) 3-5 H (0-2) /hpf Diagnostic Findings Chest X-Ray 07/24/23 08:56 XR chest 1V portable CLINICAL HISTORY: weakness TECHNIQUE: Single frontal radiograph of the chest was obtained. Comparison: Comparison is made to chest radiograph 05/29/2022 FINDINGS: No lines and tubes are seen. Calcified aortic knob is seen. The lungs are clear. No evidence of pleural effusion or pneumothorax. IMPRESSION: No acute chest disease. ACT 112: Negative or not required by law. Electronically signed by: Damian Crisostomo M.D. 07/24/2023 9:[address] 07/24/23 10:53 CT OF THE HEAD WITHOUT CONTRAST CLINICAL HISTORY: weakness, dizziness COMPARISON STUDY: Head CT May 29, 2022. CT DOSE: 547.75 mGy.cm TECHNIQUE: Helical axial images of the head were obtained without IV contrast. Automated exposure control was utilized for the study. A dose lowering technique was utilized adhering to the principles of ALARA. FINDINGS: No acute intracranial hemorrhage, midline shift or mass effect is present. The ventricular system is unremarkable. The basal cisterns are patent. No extra-axial collections are present. There are no findings to suggest acute dural sinus thrombosis or acute territorial infarct. Cortical calcification within the bilateral occipital lobes, left greater than right, is again noted. This has minimally increased since prior exam but is not acute. There is mild associated volume loss. No significant calvarial abnormalities are present. Visualized portions of the sinuses and mastoid air cells are clear. IMPRESSION: No acute intracranial findings. ACT 112: Negative or not required by law. Electronically signed by: Juan Moon M.D. 07/24/2023 11:58 AM ECG Additional Comments: Sinus rhythm with occasional Premature ventricular complexes Diffuse Minor Nonspecific T wave abnormality Abnormal ECG When compared with ECG of 29-MAY-2022 09:51, Premature ventricular complexes are now Present Confirmed by Fabian Isidro ([id number]) on 07/24/2023 12:28:05 PM Code Status & VTE Plan Code Status DNR/DNI VTE Prophylaxis Plan VTE Prophylaxis will be ordered: Yes Supervising Physician Co-Signing Physician Notes 83 yo female with h/o T cell lymphoma, on Methotrexate, presents with generalized weakness, dizziness, suspect vertigo vs CVA, obtain MRI brain, CTA head, neck, TTE , meclizine prn, neuro checks, obtain B12, folate levels , PT PG Care Time/CCT Total # of Minutes Spent Total Time Spent with Patient: Total time spent is greater than 50% in coordination of care (as documented) at patient's floor/unit and/or counseling patient: Coding [place] [address] INT INP/OBS CARE 3/75MIN Patient Type Established Medical Decision Making High Complexity Diagnoses Dizziness R42 Neutropenia D70.9 Neutropenia type: unspecified Diarrhea R19.7 T-cell large granular lymphocytic leukemia C91.Z0 Hypothyroidism E03.9 (2) Neutropenia Neutropenia type: unspecified Qualified Code(s): D70.9 - Neutropenia, unspecified
[2023-07-24] MEDS ORDERED: ONDANSETRON INJ 2 MG/ML 2 ML VIAL IV PRN (14:09)
[2023-07-24] MEDS: LACTATED RINGER'S 1,000 ML IV ONE (14:14)
[2023-07-24] MEDS ORDERED: PHARMACIST DISCHARGE MED REC CONSULT PRN (14:28)
[2023-07-24] MEDS: MECLIZINE HCL 25 MG TAB PO STA (14:28)
[2023-07-24] MEDS: ASPIRIN CHEW 324 MG PO STA (15:22)
[2023-07-24] MEDS: OPTIRAY 320 125ml IV ONE (15:57)
[2023-07-24 16:18] LABS: Folate (Folic Acid),Ser orPlas > 22.30 ng/ml (>5.38)
[2023-07-24 16:19] LABS: Vitamin B12 1047 pg/ml (180-914)
--- NOTE | 2023-07-24 16:20 | CT Scan Report ---
CT angio neck with con, CT angio head w con CLINICAL HISTORY: vertigo TECHNIQUE: CT angiography of the head and neck was performed following intravenous administration of iodinated contrast. Coronal and sagittal MIPS were obtained from the axial data set and were submitte d for review. Automated dose lowering techniques and/or adjustment according to patient size were ut ilized for this examination. All measurements were calculated based on NASCET criteria. CT DOSE: 460.34 mGy.cm Comparison: Comparison is made to CT head 07/24/2023 CTA Head and Neck 05/16/2021 FINDINGS: Mild emphysema is seen. CTA Neck: The left common carotid artery shares common origin with the innominate artery. There is n o significant atherosclerotic plaque in the aortic arch or the origins of the innominate, left common carotid, and left subclavian arteries. The common carotid, external carotid, cervical segments of t he internal carotid arteries, and the cervical segments of the vertebral arteries are patent without hemodynamically significant stenosis. The left vertebral artery is dominant. CTA Head: The anterior and posterior cerebral circulations are patent. No hemodynamically significan t stenosis, aneurysm, dissection, or arteriovenous malformation is shown. IMPRESSION: 1. No occlusion, hemodynamically significant stenosis, or dissection in the major cervical arteries. 2. No occlusion, hemodynamically significant stenosis, aneurysm, dissection, or arteriovenous malfor mation in the major intracranial arteries. Assessment of stenosis of the internal carotid arteries is based on NASCET criteria. ACT 112: Negative or not required by law. Electronically signed by: Damian Crisostomo M.D. 07/24/2023 4:19 PM
--- NOTE | 2023-07-24 17:39 | Magnetic Resonance Report ---
MRI OF THE BRAIN WITHOUT CONTRAST CLINICAL HISTORY: Vertigo. Leukemia. COMPARISON STUDY: Head CT and CTA of the head performed earlier today. TECHNIQUE: Utilizing a 1.5 Zoë magnet and dedicated coil, multiplanar, multiecho imaging of the bra in was performed without IV contrast. FINDINGS: Small focus of increased signal intensity within the right occipital lobe on axial diffusio n-weighted sequence image 10 of 24 is noted. No corresponding T2 signal abnormality is present. This focus is not well depicted on the ADC map. No definite acute infarcts are present. Ventricular system is normal. Basal cisterns are patent. There are no extra axial collections. Flow-voids for the major intracranial vessels are present. Multiple small scattered round hypointense foci on the gradient ec ho sequence suggest small foci of old blood products or amyloid. Cortical hypointensity within the oc cipital lobes, left greater than right, corresponds to cortical calcifications on CT performed earlie r today. Marrow signal heterogeneity on sagittal T1-weighted sequence is noted. IMPRESSION: 1. No definite acute infarct. Small focus of increased signal intensity within the right occipital lo be on diffusion-weighted sequence without corresponding T2 hyperintensity. This may be related to cor tical calcification shown on CT. Although not highly suggestive, a small focus of acute infarction ca nnot be excluded. 2. No acute intracranial hemorrhage or mass effect. 3. Small hypointense foci within the brain on gradient echo sequence suggestive of old blood products /amyloid deposition. 4. Marrow signal heterogeneity, likely related to history of leukemia. ACT 112: Negative or not required by law. Electronically signed by: Juan Moon M.D. 07/24/2023 5:36 PM
[2023-07-24] MEDS ORDERED: ACETAMINOPHEN 325 MG TAB PO PRN (18:10)
[2023-07-24] MEDS: ARTIFICIAL TEARS OP SCH (19:34)
--- NOTE | 2023-07-25 05:26 | Oncology Consultation ---
Date of Consultation July 25, 2023 Assessment & Plan (1) Dizziness: (2) Neutropenia: Plan Presented with dizziness. Found to have moderate neutropenia. Neutropenia appears to be improving. Neutropenia likely multifactorial due to acute illness, T-cell LGL and methotrexate. No further recommendations. Follow-up with me as scheduled hematology clinic on 08/12/2023. Consider neurology evaluation outpatient. History of Present Illness Reason for Consultation: Neutropenia Attending Physician: Farhana Johnson MD History of Present Illness Pleasant 83-year-old female known to me at [facility] with history of T-cell LGL for which she has been on methotrexate for almost 2 years with improvement in baseline anemia and has not required PRBC transfusion since she was started on treatment. Admitted with dizziness. Labs revealed moderate neutropenia with ANC of 830, WBC of 4.91, hemoglobin of 10.4 and hematocrit of 31.1. Labs obtained today showed improvement in ANC to 1.12, hemoglobin and hematocrit slightly declined to 10.2/29.1. Patient has had longstanding intermittent dizziness for which she had previously undergone extensive workup by cardiology Allergies Allergy/AdvReac Type Severity Reaction Status Date / Time Penicillins Allergy Intermediate Hives Verified 07/24/23 10:38 Sulfa (Sulfonamide AdvReac Intermediate Vomiting Verified 07/24/23 10:38 Antibiotics) Home Medications Medication Instructions Recorded Confirmed Type cyanocobalamin (vitamin B-12) 1,000 mcg PO QAM 10/07/18 07/24/23 History 1,000 mcg capsule cyclosporine 0.05 % eye drops in a 1 drp ophthalmic (eye) Q12H 04/12/20 07/24/23 History dropperette (Restasis) cholecalciferol (vitamin D3) 100 100 mcg PO QAM 05/16/21 07/24/23 History mcg (4,000 unit) capsule methotrexate sodium 2.5 mg tablet 15 mg PO WK 08/08/21 07/24/23 History levothyroxine 100 mcg tablet 100 mcg PO QAM 04/10/23 07/24/23 History (Synthroid) folic acid 400 mcg tablet 0.4 mg PO DAILY 07/24/23 07/24/23 History Patient History Medical History Anemia Hyperlipemia AV block, 1st degree Slow to wake up after anesthesia Ankylosing spondylitis Surgical History History of open reduction and internal fixation (ORIF) procedure LUE - as a child x 2 History of esophagogastroduodenoscopy (EGD) History of colonoscopy History of vaginal surgery bladder and uterine suspension with mesh History of dilation and curettage Hx of breast biopsy History of cholecystectomy Hx of tonsillectomy History of oral surgery Hx of cataract surgery History of biopsy bone marrow Family History Sister Colon cancer Dementia Granulomatous arteritis Brain Myocardial infarction Father Myocardial infarction Mother Fadia doss Denies family history of Ovarian cancer Prostate cancer Breast cancer Social History Smoking Status: Never smoker Second Hand Exposure: No; Do You Dip or Chew Tobacco: No; Hx Alcohol Use: No Hx Substance Use: No Preferred Language: Italian Communication Ability: Effective Visual Impairment: No Limitations Hearing Ability: Normal Ski Top Trimmer Required: No Beliefs That Will Affect Care: None marital status: Current Living Situation: Alone current occupational status: retired Other Information That Helps Us Care for You: No Feels Safe at Home: Yes Safety Concerns: Feels Safe At This Time Childhood Exposure to Second-Hand Smoke: No Dental Care, Regularly: Yes Physical Activity Frequency: 1-2 Times per Week Seatbelt Use: always Sunscreen Use: No Assistive Devices: None Results & Data Vital Signs (Past 12 Hours) Vital Signs Temp Pulse Pulse Resp BP Pulse Ox O2 Del Method 07/25/23 03:10 36.7 C 73 16 95/53 L 93 Room Air 07/24/23 23:50 36.5 C 71 18 136/68 95 Room Air 07/24/23 21:56 63 07/24/23 19:39 Room Air 07/24/23 19:27 36.2 C L 68 18 135/66 98 Room Air 07/24/23 18:24 36.3 C L 61 16 145/67 H 92 Room Air 07/24/23 17:36 57 L 17 109/48 L 96 Room Air (2) Neutropenia Neutropenia type: unspecified Qualified Code(s): D70.9 - Neutropenia, unspecified
[2023-07-25] MEDS: LEVOTHYROXINE SODIUM 100 MCG TABLET PO SCH (06:26)
[2023-07-25 06:44] LABS: Hematocrit (blood only) 29.9 % (37.0-47.0); Hemoglobin 10.2 g/dl (12.0-16.0); Mean Corpuscular Hgb Conc 34.1 g/dL (32.0-36.0); Mean Corpuscular Volume 90.9 fL (80.0-100.0); Mean Platelet Volume 9.8 fL (9.4-12.4); Platelet Count 188 K/uL (130-400); RDW Standard Deviation 52.4 fL (36.4-46.3); Red Blood Count 3.29 M/uL (4.20-5.40); White Blood Count 4.66 K/ul (4.8-10.8)
[2023-07-25 07:16] LABS: ALC (manual) 3.31 K/uL (1.2-3.4); ANC (manual) 1.12 K/uL (1.4-6.5); Eosinophils # (manual) 0.05 K/uL (0-0.50); Eosinophils % (manual) 1 %; Large Granular Lymph % (manual) 58 %; Lymphocytes # (manual) 0.61 K/uL (1.2-3.4); Lymphocytes % (manual) 13 %; Monocytes # (manual) 0.19 K/uL (0.11-0.59); Monocytes % (manual) 4 %; Neutrophils # (manual) 1.12 K/uL (1.40-6.50); Neutrophils % (manual) 24 %; Ovalocytes 1+
[2023-07-25 07:20] LABS: Prothrombin Time 11.2 Seconds (9.0-12.0)
[2023-07-25 07:21] LABS: Albumin Globulin Ratio 1.9 (0.9-2); Albumin Level 3.9 gm/dl (3.4-5.0); Bilirubin,Total 1.7 mg/dl (0.2-1.0); Calcium 8.7 mg/dl (8.6-10.3); Creatinine Clr Calc Pharmacy 56.3 ml/min; Est GFR (African American) 84.8 ml/min; Est GFR (Non-African American) 73.2 ml/min; Globulin 2.1 gm/dl (2.5-4.0); Magnesium 2.1 mg/dl (1.7-2.4); Potassium 4.1 mmol/L (3.5-5.1)
[2023-07-25 07:45] LABS: Estimated Average Glucose 103 mg/dl; Hemoglobin A1C 5.2 % (4.5-5.6)
[2023-07-25] MEDS: FOLIC ACID 400 MCG TAB PO SCH (08:11)
--- OUTSIDE RECORDS SUMMARY | 2023-07-25 08:14 | External Medical Summary | Continuity of Care Document ---
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 Role Phone , Apolinar Ugalde Primary Care Physician [phone] Encounter [facility] [id number] Date(s): 07/15/23 - 07/15/23 [facility] [address] [facility] 2 [address] [phone] [place] Encounter Diagnosis History of dysplastic nevus(Discharge Diagnosis) - 07/15/23 History of squamous cell carcinoma of skin(Discharge Diagnosis) - 07/15/23 Multiple nevi(Discharge Diagnosis) - 07/15/23 Seborrheic keratoses(Discharge Diagnosis) - 07/15/23 Encounter for follow-up examination after completed treatment for cancer (Discharge Diagnosis) - 07/15/23 Discharge Disposition: Home or Self Care Attending Physician: MD Kelley, Eloise Perea Allergies, Adverse Reactions, Alerts Substance Criticality Severity Reaction Reaction Severity Status penicillin hives Active sulfa drugs gi upset Active Assessment and Plan Extracted from: Title:Dermatology Office Visit Note Author:Raleigh whalen MD, Sara B Date:07/15/23 1.History of dysplastic ne vus See #5 2.History of squamous cell carcinoma of skin See #5 3.Multiple nevi Chronic, within normal limits today 4.Seborrheic keratoses Chronic, within normal limits today 5.Encounter for follow-up examination after completed treatment for cancer Scarsclear today,ptaware of inc risk.Warning signs of skin cancer were reviewed. Sun protection reviewed. Follow-up in 6 months, sooner for any changing or growing lesions or acute concerns. I also recommended monthly self skin exams 6. Immunosuppressed status. 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 We discussed that this increasesher risk and she should call with any new or changing lesions. Medications L-Methylfolate Formula Start: 11/21/21 1:22:00 PM EDT Start Date: 11/21/21 Status: Ordered methotrexate Start: 11/21/21 1:21:00 PM EDT, 15 mg =, 6 pills once a week Start Date: 11/21/21 Status: Ordered Restasis 0.05% ophthalmic emulsion Start: 07/21/12 12:58:00 PM EDT, 1 drop, both eyes, q12h Start Date: 07/21/12 Status: Ordered Synthroid 88 mcg (0.088 mg) oral tablet Start: 09/17/16 10:58:00 AM EDT, 1 tab, PO, Daily, 100 mcg Start Date: 09/17/16 Status: Ordered Vitamin B12 Start: 09/17/16 11:00:00 AM EDT, 1,000 mcg =, Daily Start Date: 09/17/16 Status: Ordered Vitamin D3 Start: 09/22/17 10:01:00 AM EDT Start Date: 09/22/17 Status: Ordered Mental Status 07/15/23 Barriers to Learning one year None evide nt Mandatory Health Literacy Documentation Yes Health Literacy Communication Barriers N ever Primary Language Hebrew Problem List Condition Confirmation Course Effective Dates Status H ealth Status Informant AK (actinic keratosis) Confirmed Active Essential telangiectasia Confirmed Active Multiple nevi Confirmed Active Changing skin lesion Confirmed Active [place] Confirmed Active Diarrhea Confirmed Active Encounter for follow-up examination after completed treatment for cancer Confirmed Active History of dysplastic nevus Confirmed Active History of squamous cell carcinoma of skin Confirmed Active Hypothyroid Confirmed Active Melanocytic nevus of trunk Confirmed Active Milia Confirmed Active Seborrheic keratoses Confirmed Active Senile hyperkeratosis Confirmed Active T-cell large granular lymphocytic leukemia Confirmed Active Diagnosis Diagnosis Type Effective Dates Health Status Clinical Service Informant History of dysplastic nevus Discharge Diagnosis 07/15/23 History of squamous cell carcinoma of skin Discharge Diagnosis 07/15/23 Encounter for follow-up examination after completed treatment for cancer Discharge Diagnosis 07/15/23 Seborrheic keratoses Discharge Diagnosis 07/15/23 Multiple nevi Discharge Diagnosis 07/15/23 Procedures Procedure Date Related Diagnosis Body Site Status Mohs micrographic surgery 08/06/22 Completed Punch biopsy of skin 07/16/22 Comp leted Shave biopsy and cauterization of skin 06/10/22 Completed Colonoscopy 2019 Completed Shave biopsy and cauterisation of skin 09/28/18 Completed Surgery 1 09/23/17 Completed HIDA scan 2 09/01/17 Completed Shave biopsy of skin 07/13/14 Comp leted Mammogram - screening 2014 Com pleted Colonoscopy 3 12/25/09 Completed Colonoscopy 4 01/03/05 Completed bladder and uterine tack Completed cataract rt eye Completed D/C Completed Tonsillectomy with adenoidectomy 5 Completed 1gallbladder removal 2No evidence of cystic duct obstruction Slightly diminished gallbladder ejection fraction of 29% 3Sessile polyp was found in the sigmoid colon--3mm polyp Ileum was normal Entire examined colon is normal 4Biopsy: terminal ileum--1) chronic acitve iletis 2) negative for dysplasia and malignancy colon: 1) features consistent with collagenous colitis 2) negative for dysplasia and malignancy 5Childhood Social History Social History Type Response Smoking Status Never smoked cigaret kiki Sex Female Dermatology Outpatient Note * MD Kelley, Eloise Perea: PERFORM Event Display: Dermatology Outpt Note Authored Date: Chief Complaint 6 month f/u - skin check History of Present Illness Follows up with history of dysplastic nevus, basal cell central scalp treated with Mohs spring verrucal actinic keratosis base not visualized on the right nose. 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 This was also treated with Mohs surgery. [1] Physical Exam Gen: Well appearing patient, no acute distress. Alert and oriented x3. Good mood. Skin examination completed of face, eyelids, scalp, hair, lips, ears, neck, chest, back, abdomen,upper and lower extremities bilaterally including hands, feet, fingers and toes, fingernails and toenails, pt declined buttocks and groin. Pt declined a heel stiffener.The patient has clear scars without any evidence of recurrent skin cancer. She has scattered less than 6mm in diameter well circumscribed round brown macular nevi within normal limits under dermoscopy.Scattered seborrheic keratoses. Assessment/Plan 1.History of dysplastic nevus See #5 2.History of squamous cell carcinoma of skin See #5 3.Multiple nevi Chronic, within normal limits today 4.Seborrheic keratoses Chronic, within normal limits today 5.Encounter for follow-up examination after completed treatment for cancer Scarsclear today,pt[place] of inc risk.Warning signs of skin cancer were reviewed. Sun protection reviewed. Follow-up in 6 months, sooner for any changing or growing lesions or acute concerns. I also recommended monthly self skin exams 6. Immunosuppressed status. 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 We discussed that this increasesher risk and she should call with any new or changing lesions. 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 Procedure/Surgical History Mohs micrographic surgery| Service Date: 3Punch biopsy of skin| Service Date: 07/16/2022Shave biopsy and cauterization of skin| Service Date: 3Colonoscopy| Service Date:2019Shave biopsy and cauterisation of skin| Service Date: 09/28/2018Surgery| Service Date: 09/23/2017HIDA scan| Service Date: 09/01/2017Shave biopsy of skin| Service Date: 07/13/2014Mam mogram - screening| Service Date: 2014Colonoscopy| Service Date: 12/25/2009Colonoscopy| Service Date: 01/03/2005Tonsillectomy with adenoidectomyD/Ccataract rt eyebladder and uterinetack Medications cholecalciferol(Vitamin D3) cyanocobalamin(Vitamin B12), 1000 mcg, Daily cycloSPORINE ophthalmic(Restasis 0.05% ophthalmic emulsion), 1 drop, both eyes, q12h l-methylfolate(L-Methylfolate Formula) levothyroxine(Synthroid 88 mcg (0.088 mg) oral tablet), 88 mcg= 1 tab, PO, Daily methotrexate, 15 mg Allergies penicillinhives sulfa drugsgi upset Social History Smoking Status Never smoked cigarettes Family History Breast cancer: Niece/Nephew and Niece/Nephew. CHF (congestive heart failure): Father. Cancer of colon: Sister. Cardiovascular disease: Sister. Gallbladder disease: Sister. Heart disease: Mother. Health Status Family Member(s) [1]Office Visit Note; MD Kelley, Eloise Perea 11/24/2022 15:05 EDT Electronic Signature on File Electronically Reviewed/Signed by: Eloise Benson MD Author Signature Dt/Tm:07/15/2023 01:29 PM Department of Dermatology [facility] Patient Care team information Care Team Personnel Name: MD Alvarez Jeffrey W Position: Referring DIRECT Member Role: Primary Care Provider Address: Address: [facility] [address] Care Team Related Persons Name: FLETCHER RODRIGUEZ Address: home [address] [place] [address] Name: RUSSELL BUCKNER Address: home No Address Provided [place], [place] [id number] Name: RUSSELL BUCKNER Address: home [address], [place] [id number]"
--- NOTE | 2023-07-25 13:10 | Hospitalist Progress Note ---
Date of Service July 25, 2023 Assessment & Plan (1) Dizziness: Plan: Patient presents with vertigo and ambulatory dysfunction Symptoms worse when she moves her head from [id number] or when she changes her position Most likely benign positional vertigo PT/OT consult CTA head/neck, CT head, MRI brain are all negative for acute stroke. Right occipital lobe calcification seen on MRI and CT head is most likely not related to any acute stroke as the symptoms do not well align Patient says she has chronic diarrhea after she gets methotrexate. This is not new. Echocardiogram ordered. Will check result Awaiting PT eval for BPV (2) Neutropenia: Plan: -Total absolute neutrophil count of 0.83 today -Has been afebrile -All other cell lines are currently stable -Likely due to her methotrexate use -Hold methotrexate for now -Neutropenic precautions -Oncologist reports. Recommends follow-up outpatient (3) Diarrhea: Plan: -Follow stool studies Patient says this is chronic (4) T-cell large granular lymphocytic leukemia: Plan: Follow oncologist on board. No further recommendations at this time. Follow-up outpatient -Neutropenic precautions (5) Hypothyroidism: Plan: -TSH WNL -Continue levothyroxine Admission and Anticipated Discharge Date Admission Date: July 24, 2023 Subjective Patient says that she still has the vertigo but it is slightly better today. It gets worse when she moves her head from [id number] or when she changes positio n. Her balance is significantly affected by it Review of Systems Review of Systems: All systems reviewed & are unremarkable except as noted in Subjective Physical Exam Physical Exam: General: Awake, conversant Heart: S1, S2/regular rate and rhythm, no murmur rubs or gallops Lungs: Clear to auscultation bilaterally. Normal effort Abdomen: Soft/nontender/nondistended. No hepatosplenomegaly Extremities: No clubbing/cyanosis. No edema Behavior: Appropriate, cooperative Results & Data Results & Data Vital Signs (Past 12 Hours) Vital Signs Temp Pulse Pulse Pulse Resp BP Pulse Ox 07/25/23 11:28 36.8 C 70 16 111/60 96 07/25/23 08:48 63 07/25/23 08:01 36.7 C 78 16 125/63 90 07/25/23 03:10 36.7 C 73 16 95/53 L 93 O2 Del Method 07/25/23 11:28 Room Air 06/01/24 08:48 07/25/23 08:01 Room Air 07/25/23 03:10 Room Air Laboratory Results Abnormal lab results 07/24/23 07/25/23 Range/Units 09:26 05:49 WBC 4.66 L (4.8-10.8) K/ul RBC 3.29 L (4.20-5.40) M/uL Hgb 10.2 L (12.0-16.0) g/dl Hct 29.9 L (37.0-47.0) % RDW Std Deviation 52.4 H (36.4-46.3) fL RDW Coeff of Rosalba 16.0 H (11.5-14.5) % Neutrophils # (Manual) 1.12 L (1.40-6.50) K/uL Total Absolute Neuts 1.12 L (1.4-6.5) K/uL Lymphocytes # (Manual) 0.61 L (1.2-3.4) K/uL Chloride 109 H (98-107) mmol/L Total Bilirubin 1.7 H (0.2-1.0) mg/dl Globulin 2.1 L (2.5-4.0) gm/dl Triglycerides 171 H (0-150) mg/dl VLDL Cholesterol, Calc 34 H (0-30) mg/dl Vitamin B12 1047 H (180-914) pg/ml Diagnostic Findings Brain MRI 07/24/23 14:29 MRI OF THE BRAIN WITHOUT CONTRAST CLINICAL HISTORY: Vertigo. Leukemia. COMPARISON STUDY: Head CT and CTA of the head performed earlier today. TECHNIQUE: Utilizing a 1.5 Zoë magnet and dedicated coil, multiplanar, multiecho imaging of the brain was performed without IV contrast. FINDINGS: Small focus of increased signal intensity within the right occipital lobe on axial diffusion-weighted sequence image is noted. No corresponding T2 signal abnormality is present. This focus is not well depicted on the ADC map. No definite acute infarcts are present. Ventricular system is normal. Basal cisterns are patent. There are no extra axial collections. Flow- voids for the major intracranial vessels are present. Multiple small scattered round hypointense foci on the gradient echo sequence suggest small foci of old blood products or amyloid. Cortical hypointensity within the occipital lobes, left greater than right, corresponds to cortical calcifications on CT performed earlier today. Marrow signal heterogeneity on sagittal T1-weighted sequence is noted. IMPRESSION: 1. No definite acute infarct. Small focus of increased signal intensity within the right occipital lobe on diffusion-weighted sequence without corresponding T2 hyperintensity. This may be related to cortical calcification shown on CT. Although not highly suggestive, a small focus of acute infarction cannot be excluded. 2. No acute intracranial hemorrhage or mass effect. 3. Small hypointense foci within the brain on gradient echo sequence suggestive of old blood products/amyloid deposition. 4. Marrow signal heterogeneity, likely related to history of leukemia. ACT 112: Negative or not required by law. Electronically signed by: Juan Moon M.D. 07/24/2023 5:36 PM Head CTA 07/24/23 14:29 CT angio neck with con, CT angio head w con CLINICAL HISTORY: vertigo TECHNIQUE: CT angiography of the head and neck was performed following intravenous administration of iodinated contrast. Coronal and sagittal MIPS were obtained from the axial data set and were submitted for review. Automated dose lowering techniques and/or adjustment according to patient size were utilized for this examination. All measurements were calculated based on NASCET criteria. CT DOSE: 460.34 mGy.cm Comparison: Comparison is made to CT head 07/24/2023 CTA Head and Neck 05/16/2021 FINDINGS: Mild emphysema is seen. CTA Neck: The left common carotid artery shares common origin with the innominate artery. There is no significant atherosclerotic plaque in the aortic arch or the origins of the innominate, left common carotid, and left subclavian arteries. The common carotid, external carotid, cervical segments of the internal carotid arteries, and the cervical segments of the vertebral arteries are patent without hemodynamically significant stenosis. The left vertebral artery is dominant. CTA Head: The anterior and posterior cerebral circulations are patent. No hemodynamically significant stenosis, aneurysm, dissection, or arteriovenous malformation is shown. IMPRESSION: 1. No occlusion, hemodynamically significant stenosis, or dissection in the major cervical arteries. 2. No occlusion, hemodynamically significant stenosis, aneurysm, dissection, or arteriovenous malformation in the major intracranial arteries. Assessment of stenosis of the internal carotid arteries is based on NASCET criteria. ACT 112: Negative or not required by law. Electronically signed by: Damian Crisostomo M.D. 07/24/2023 4:19 PM Neck CTA 07/24/23 14:29 CT angio neck with con, CT angio head w con CLINICAL HISTORY: vertigo TECHNIQUE: CT angiography of the head and neck was performed following intravenous administration of iodinated contrast. Coronal and sagittal MIPS were obtained from the axial data set and were submitted for review. Automated dose lowering techniques and/or adjustment according to patient size were utilized for this examination. All measurements were calculated based on NASCET criteria. CT DOSE: 460.34 mGy.cm Comparison: Comparison is made to CT head 07/24/2023 CTA Head and Neck 05/16/2021 FINDINGS: Mild emphysema is seen. CTA Neck: The left common carotid artery shares common origin with the innominate artery. There is no significant atherosclerotic plaque in the aortic arch or the origins of the innominate, left common carotid, and left subclavian arteries. The common carotid, external carotid, cervical segments of the internal carotid arteries, and the cervical segments of the vertebral arteries are patent without hemodynamically significant stenosis. The left vertebral artery is dominant. CTA Head: The anterior and posterior cerebral circulations are patent. No hemodynamically significant stenosis, aneurysm, dissection, or arteriovenous malformation is shown. IMPRESSION: 1. No occlusion, hemodynamically significant stenosis, or dissection in the major cervical arteries. 2. No occlusion, hemodynamically significant stenosis, aneurysm, dissection, or arteriovenous malformation in the major intracranial arteries. Assessment of stenosis of the internal carotid arteries is based on NASCET criteria. ACT 112: Negative or not required by law. Electronically signed by: Damian Crisostomo M.D. 07/24/2023 4:19 PM PG Care Time/CCT Total # of Minutes Spent Total Time Spent with Patient: Total time spent is greater than 50% in coordination of care (as documented) at patient's floor/unit and/or counseling patient: Coding Level of Care Code 05666 SUB INP/OBS CARE 2/35MIN Diagnoses Dizziness R42 Neutropenia D70.9 Neutropenia type: unspecified Diarrhea R19.7 T-cell large granular lymphocytic leukemia C91.Z0 Hypothyroidism E03.9 (2) Neutropenia Neutropenia type: unspecified Qualified Code(s): D70.9 - Neutropenia, unspecified
--- NOTE | 2023-07-25 23:45 | XCELERA ---
[id number] \\[email or web address]\[id number]___[id number].pdf
[2023-07-26 06:25] LABS: Hemoglobin 10.1 g/dl (12.0-16.0); Mean Corpuscular Hemoglobin 30.8 pg (25.0-34.0); Mean Corpuscular Hgb Conc 33.7 g/dL (32.0-36.0); Mean Corpuscular Volume 91.5 fL (80.0-100.0); Mean Platelet Volume 10.2 fL (9.4-12.4); Platelet Count 178 K/uL (130-400); RDW Standard Deviation 52.6 fL (36.4-46.3); Red Blood Count 3.28 M/uL (4.20-5.40); White Blood Count 5.94 K/ul (4.8-10.8)
[2023-07-26 06:42] LABS: Prothrombin Time 11.2 Seconds (9.0-12.0)
[2023-07-26 07:14] LABS: Albumin Globulin Ratio 1.7 (0.9-2); Albumin Level 3.9 gm/dl (3.4-5.0); BUN Creatinine Ratio 14.5 (10-20); Bilirubin,Total 1.9 mg/dl (0.2-1.0); Calcium 8.8 mg/dl (8.6-10.3); Creatinine Clr Calc Pharmacy 50.9 ml/min; Est GFR (African American) 75.1 ml/min; Est GFR (Non-African American) 64.8 ml/min; Globulin 2.3 gm/dl (2.5-4.0); Magnesium 2.1 mg/dl (1.7-2.4); Potassium 3.8 mmol/L (3.5-5.1); Total Protein 6.2 gm/dl (6.0-8.3)
[2023-07-26 07:42] LABS: ALC (manual) 4.99 K/uL (1.2-3.4); ANC (manual) 0.65 K/uL (1.4-6.5); Basophils # (manual) 0.06 K/uL (0-0.2); Basophils % (manual) 1 %; Large Granular Lymph # (manua 2.32 K/uL; Large Granular Lymph % (manual) 39 %; Lymphocytes # (manual) 2.67 K/uL (1.2-3.4); Lymphocytes % (manual) 45 %; Monocytes # (manual) 0.24 K/uL (0.11-0.59); Monocytes % (manual) 4 %; Neutrophils # (manual) 0.65 K/uL (1.40-6.50); Neutrophils % (manual) 11 %
--- NOTE | 2023-07-26 15:28 | Hospitalist Progress Note ---
Date of Service July 26, 2023 Assessment & Plan (1) Dizziness: Plan: Patient presents with vertigo and ambulatory dysfunction Symptoms worse when she moves her head from [id number]-[id number] or when she changes her position Most likely benign positional vertigo PT/OT consult CTA head/neck, CT head, MRI brain are all negative for acute stroke. Right occipital lobe calcification seen on MRI and CT head is most likely not related to any acute stroke as the symptoms do not well align Will start a baby aspirin daily Patient says she has chronic diarrhea after she gets methotrexate. This is not new. Echocardiogram unremarkable Awaiting improvement in her symptoms further so she is comfortable with discharge to home (2) Neutropenia: Plan: -Total absolute neutrophil count of 0.83 today -Has been afebrile -All other cell lines are currently stable -Likely due to her methotrexate use -Hold methotrexate for now -Neutropenic precautions -Oncologist reports. Recommends follow-up outpatient (3) Diarrhea: Plan: -Follow stool studies Patient says this is chronic (4) T-cell large granular lymphocytic leukemia: Plan: Follow oncologist on board. No further recommendations at this time. Follow-up outpatient -Neutropenic precautions (5) Hypothyroidism: Plan: -TSH WNL -Continue levothyroxine Plan Likely discharge tomorrow Admission and Anticipated Discharge Date Admission Date: July 24, 2023 Subjective Patient feels better overall. She says that she is not as imbalanced as she was yesterday. She was able to walk to the bathroom with her walker. She is not comfortable with the discharge plan today as she has not walked on the hallways. Review of Systems Review of Systems: All systems reviewed & are unremarkable except as noted in Subjective Physical Exam Physical Exam: General: Awake, conversant Heart: S1, S2/regular rate and rhythm, no murmur rubs or gallops Lungs: Clear to auscultation bilaterally. Normal effort Abdomen: Soft/nontender/nondistended. No hepatosplenomegaly Extremities: No clubbing/cyanosis. No edema Behavior: Appropriate, cooperative Results & Data Results & Data Vital Signs (Past 12 Hours) Vital Signs Temp Pulse Pulse Resp BP Pulse Ox O2 Del Method 07/26/23 15:23 67 07/26/23 15:04 36.6 C 73 17 102/54 L 94 Room Air 07/26/23 12:21 36.4 C L 61 16 97/58 L 95 Room Air 07/26/23 08:27 36.8 C 59 L 16 109/58 L 95 Room Air 07/26/23 07:08 65 Laboratory Results Abnormal lab results 07/26/23 Range/Units 05:46 RBC 3.28 L (4.20-5.40) M/uL Hgb 10.1 L (12.0-16.0) g/dl Hct 30.0 L (37.0-47.0) % RDW Std Deviation 52.6 H (36.4-46.3) fL RDW Coeff of Rosalba 16.0 H (11.5-14.5) % Neutrophils # (Manual) 0.65 L (1.40-6.50) K/uL Total Absolute Neuts 0.65 L* (1.4-6.5) K/uL Total Abs Lymphocytes 4.99 H (1.2-3.4) K/uL Chloride 108 H (98-107) mmol/L Total Bilirubin 1.9 H (0.2-1.0) mg/dl Globulin 2.3 L (2.5-4.0) gm/dl PG Care Time/CCT Total # of Minutes Spent Total Time Spent with Patient: Total time spent is greater than 50% in coordination of care (as documented) at patient's floor/unit and/or counseling patient: Coding Level of Care Code 04508 SUB INP/OBS CARE 2/35MIN Diagnoses Dizziness R42 Neutropenia D70.9 Neutropenia type: unspecified Diarrhea R19.7 T-cell large granular lymphocytic leukemia C91.Z0 Hypothyroidism E03.9 (2) Neutropenia Neutropenia type: unspecified Qualified Code(s): D70.9 - Neutropenia, unspecified
[2023-07-27 06:30] LABS: Hematocrit (blood only) 29.1 % (37.0-47.0); Hemoglobin 9.8 g/dl (12.0-16.0); Mean Corpuscular Hemoglobin 30.5 pg (25.0-34.0); Mean Corpuscular Hgb Conc 33.7 g/dL (32.0-36.0); Mean Corpuscular Volume 90.7 fL (80.0-100.0); Mean Platelet Volume 9.8 fL (9.4-12.4); Platelet Count 183 K/uL (130-400); RDW Coefficient of Variation 16.1 % (11.5-14.5); RDW Standard Deviation 52.8 fL (36.4-46.3); Red Blood Count 3.21 M/uL (4.20-5.40); White Blood Count 5.89 K/ul (4.8-10.8)
[2023-07-27 06:42] LABS: Calcium 8.9 mg/dl (8.6-10.3); Creatinine Clr Calc Pharmacy 53.5 ml/min; Est GFR (African American) 79.7 ml/min; Est GFR (Non-African American) 68.7 ml/min; Magnesium 2.1 mg/dl (1.7-2.4); Potassium 3.8 mmol/L (3.5-5.1)
[2023-07-27 06:59] LABS: Prothrombin Time 11.1 Seconds (9.0-12.0)
[2023-07-27 07:10] LABS: Basophils # (auto) 0.02 K/uL (0.00-0.20); Basophils % (auto) 0.3 %; Eosinophils # (auto) 0.03 K/uL (0.00-0.50); Eosinophils % (auto) 0.5 %; Immature Granulocytes # (auto) 0.01 K/uL (0.01-0.20); Immature Granulocytes % (auto) 0.2 %; Lymphocytes % (auto) 76.4 %; Monocytes % (auto) 6.8 %; Neutrophils # (auto) 0.93 K/uL (1.40-6.50); Neutrophils % (auto) 15.8 %; Ovalocytes 1+
[2023-07-27] MEDS: ASPIRIN 81 MG ECTAB PO SCH (07:24)
--- NOTE | 2023-07-27 10:27 | Discharge Summary ---
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 She was noted to be hypotensive on arrival at 94/53 on arrival but otherwise stable. Labs were significant for an absolute neutrophil count of 0.83, total bili of 1.9 (near her baseline), UA with trace leukocyte esterase and 3-5 epithelial cells, and full respiratory biofire negative. CT of the head/brain wo on and CXR were read as negative for acute findings. Prior to admission the patient was given 500 mL NSS. At the time of the exam the patient was lying in bed in no acute distress with her 24/7 caregiver bedside, history was obtained from both. Patient was initially in her normal state of health when she first woke around 0600 this am. She was getting ready for the day around 0700 when she had acute onset of dizziness and the sensation that "the right side of my brain was getting pulled out of my head". She denies the room spinning but has felt very off balance since symptoms started. She does feel as though changing positions or moving her head exacerbates the symptoms. She had a hx of vertigo prior to her diagnosis of Leukemia approximately 4 years ago. She is not on antihypertensives or diuretics. Had had approximately 3 episodes daily of non-bloody diarrhea, denies recent antibiotic use. No recent fever, chills, chest pain, changes in her chronic SOB, abd pain, nausea, vomiting, dysuria, hematuria, melena, LE swe lling, and recent trauma. She is a DNR/DNI and her daughter is her POA. Please refer to Dr. Johnson's attestation for any changes to the treatment plan Admission Exam Per Admitting Provider General: In mild distress due to vertigo, stated age, non-toxic appearing HEENT: Normocephalic, atraumatic, no scleral icterus, pupils around round, symmetrical, and reactive to light, dry mucus membranes, trachea midline, no thyromegaly Chest/Pulm: No respiratory distress, symmetrical chest expansion, clear breath sounds throughout Cardiac: RRR, no murmurs noted Abdomen: Negative for ascites and bruising, normoactive bowel sounds, soft, non- tender to palpation throughout Musculoskeletal: Symmetrical and without signs of acute trauma, upper and lower extremities with full ROM, no atrophy, spasticity, or flaccidity Extremities: Radial, dorsalis pedis, and posterior tibial pulses are intact and symmetrical, no edema noted in the BL LE's Skin: Warm, dry, no rashes , lesions, or scars noted Neuro: Alert and oriented to person, place, month, year, no focal defects, CN II-XII tested horizontal nystagmus on EOM testing but otherwise WNL, negative cerebellar and pronator drift in the BL UE's, no tremors noted Psych: Polite and cooperative during the exam Principal Diagnosis Benign positional vertigo Physical deconditioning Discharge Exam General: Awake, conversant Heart: S1, S2/regular rate and rhythm, no murmur rubs or gallops Lungs: Clear to auscultation bilaterally. Normal effort Abdomen: Soft/nontender/nondistended. No hepatosplenomegaly Extremities: No clubbing/cyanosis. No edema Behavior: Appropriate, cooperative Discharge Data Allergies Allergy/AdvReac Type Severity Reaction Status Date / Time Penicillins Allergy Intermediate Hives Verified 07/24/23 10:38 Sulfa (Sulfonamide AdvReac Intermediate Vomiting Verified 07/24/23 10:38 Antibiotics) Consultations 07/24/23 13:45 ED Decision to Admit Stat 07/24/23 14:31 Consult Oncology Routine Ordered Studies 07/24/23 10:53 CT head/brain wo con Stat 07/24/23 14:29 CTA head w con [CT angio head w con] Stat CTA neck with con [CT angio neck with con] Stat MRI Brain [MR brain wo con] Urgent Hospital Course (1) Dizziness: Patient presents with vertigo and ambulatory dysfunction Symptoms worse when she moves her head from [id number] or when she changes her position Most likely benign positional vertigo PT/OT consult CTA head/neck, CT head, MRI brain are all negative for acute stroke. Right occipital lobe calcification seen on MRI and CT head is most likely not related to any acute stroke as the symptoms do not well align Will start a baby aspirin daily and recommend neurology follow-up in 1 month Patient says she has chronic diarrhea after she gets methotrexate. This is not new. Echocardiogram unremarkable Symptoms improved enough today to the point that she is comfortable going home today. (2) Neutropenia: -Total absolute neutrophil count of 0.83 today -Has been afebrile -All other cell lines are currently stable -Likely due to her methotrexate use -Hold methotrexate for now -Neutropenic precautions -Oncologist reports. Recommends follow-up outpatient (3) Diarrhea: -Follow stool studies Patient says this is chronic (4) T-cell large granular lymphocytic leukemia: Follow oncologist on board. No further recommendations at this time. Follow-up outpatient -Neutropenic precautions (5) Hypothyroidism: -TSH WNL -Continue levothyroxine Plan Discharge to home today with home health Total Time Total Time Spent Total Time Spent (In Minutes): 35 Discharge Plan Discharge Items Patient Disposition: Home - Home Health Services Reason For Visit: DIZZINESS, AMBULATORY DYSFUNCTION Discharge Diagnosis: Benign positional vertigo - Deconditioning Activity: Resume your previous activity Non-emergency contact: Primary Care Provider Call non-emergency contact if: you have any medication questions and your symptoms worsen Follow-up/Referrals: Apolinar Alvarez MD [Primary Care Provider] - 08/03/23 12:00 pm David Soliz MD [Physician] - Diet: Heart Healthy Addtl Attending Provider Instructions: Advised to follow-up with PCP in 1 week Advised to follow-up with neurologist in 1 month Pending Studies at Discharge: No Stand-Alone Forms: My [facility] Medications and DC Order Prescriptions: New aspirin 81 mg Tablet,Delayed Release (Dr/Ec) 81 mg PO DAILY 30 Days Qty: 30 0RF Continued methotrexate sodium 2.5 mg tablet 15 mg PO WK Rx Instructions: TAKES ON THURSDAYS. levothyroxine [Synthroid] 100 mcg tablet 100 mcg PO QAM Patient Comments: pt states taking 90mcg cyanocobalamin (vitamin B-12) 1,000 mcg capsule 1,000 mcg PO QAM cyclosporine [Restasis] 0.05 % Dropperette 1 drp OPHTHALMIC (EYE) Q12H cholecalciferol (vitamin D3) 100 mcg (4,000 unit) Capsule 100 mcg PO QAM folic acid 400 mcg Tablet 0.4 mg PO DAILY Discharge Orders: Discharge Order (Routine); Ordered 07/27/23 Ordered By: Cathy Denton Admission Data Admit Date/Time: 07/24/23 14:08 Attending Provider: Cathy Denton Admit Provider: Farhana Johnson Primary Care Provider: Apolinar Alvarez Other Providers: Farhana Johnson; Daniel Gale Other Interventions: Discharge Summary Assessment (RN) Last Done: 07/27/23 10:57 Coding Level of Care Code 35317 INP/OBS DISCH >30 MIN Diagnoses Dizziness R42 Neutropenia D70.9 Neutropenia type: unspecified Diarrhea R19.7 T-cell large granular lymphocytic leukemia C91.Z0 Hypothyroidism E03.9
== END 2023-07-27 14:31 | disposition home health service (06) | DRG 149 ==
LOC: ED 08:23 → 2W 14:08 → INTOOBSV 14:08 → SUATTDRO 14:08 → 2W 17:22

== ENCOUNTER 2023-09-06 11:36 | Inpatient (IN) ==
--- NOTE | 2023-09-06 11:49 | Emergency Department Note ---
Impression & Plan COVID-19, Generalized weakness, Ambulatory dysfunction ED Provider Note Name: GIOVANA BUCKNER Age: 83 Sex: Female Arrives Via: Ambulance Informant: Patient and patient's caregiver ED Provider: Yahir Rosado MD Chief Complaint: Weakness Impression: As per impressions above Medical Decision Making: Pleasant 83-year-old female with T-cell leukemia, hypothyroidism, hyperlipidemia, multiple other as well as possibly some dementia and anxiety arrives for worsening weakness over the last few days. She has got to the point where she is barely able to ambulate between bed and a bedside commode which is new for her. No falls, trauma, injuries. She relates dizziness and does have a history of vertigo but her symptoms very much seem more weakness related. CT of the head is unremarkable. There are no neurodeficits. Lungs are clear chest x- ray looks good. Laboratory workup does reveal she is COVID-positive. Otherwise no evidence of sepsis. Discussed with patient and caregiver and patient is felt to be too weak to be safe to be discharged back to her home where she does not have 24/7 care. Hospitalist consulted for further management. Triage/Nursing Notes reviewed by Me Differential:Infection, dehydration, metabolic abnormality, hypo/hyperglycemia, electrolyte disturbance, anemia, hypoxia, cardiac sources, intracerebral event, toxicologic, neurologic, as well as other pathologies. Vital Signs: reviewed and remarkable for no significant abnormalities Interventions: Normal saline bolus 100 mL IV x 2 Labs:ED labs Reviewed by me and remarkable for COVID-positive Imaging:CT of the head without contrast as per my informal interpretation no intracranial hemorrhage or mass effect confirmed by radiologist. 1 view chest x-ray as per my interpretation no infiltrate or effusion appreciated. EKG:As per my interpretation. Indication weakness. Normal sinus rhythm at 62 bpm with a first-degree AV block. There is no ectopy nor ischemia. QTc is 361. When compared to EKG of July 24, 2023 there is no significant change. Cardiac/Tele Monitoring: Cardiac Monitoring: An Order was placed for continuous cardiac monitoring. The monitor shows a rate of 60 with a normal sinus rhythm. Consults:Dr Genesis PARADA was consulted and I discussed with him plan for further evaluation and management. Plan: Disposition:Hospitalization. Condition: Good History of Present Illness: 83-year-old female arrives for evaluation of weakness. Patient with several days worsening weakness. Associated with what she reports is dizziness/vertigo but she denies any actual spinning. Patient states she does not feel well and she is too weak to even walk around the house now. She does have a caregiver at her home who helps her with daily activities though things have gotten a lot worse over the last few days. Patient denies any falls or injuries. She denies any headache, neck pain, chest pain, shortness of breath, difficulty breathing, abdominal pain, back pain, urinary burning, diarrhea or other concerning symptoms. She says this happened previously though is unsure when. No blood thinner use. Patient is on methotrexate. Past Medical History:See Below Home Medications:See Below Allergies: Penicillins and sulfa Vitals:Blood Pressure: 140/61, Pulse 64, RR 18, T 36.7C, O2 95% on RA Physical Exam: GENERAL: Patient is elderly, frail, dehydrated appearing and in mild distress. Tremulous HEAD: AT/NC RESPIRATORY: No dyspnea. Clear to auscultation and equal bilaterally. CARDIOVASCULAR: Regular rate and rhythm.No murmur appreciated. GASTROINTESTINAL: Abdomen soft, non-tender, no peritonitis. EXTREMITIES: Normal motion all extremities, no cyanosis, no edema. NEUROLOGIC: NIH 0. Alert and oriented. No focal neurologic deficits appreciated SKIN: No rash, no jaundice, no diaphoresis. PSYCH: Appropriate though mildly anxious GCS: 15 ED Course: Times/Reassessments: Patient actually appears a bit calmer after some fluids though still quite weak with sitting up. Caregiver at bedside Yahir Rosado MD Past Med/Surg History Problem List (Updated 09/06/23 @ 14:00 by Souleymane Hurtado MD) COVID Dizziness (Acute) Neutropenia (Acute) Weakness (Acute) Syncope BECERRA (dyspnea on exertion) Encounter for pre-operative examination Mitral regurgitation Benign positional vertigo Dizziness, nonspecific (Acute) Multiple lung nodules on CT annual CT scan (most recent July 2019) T-cell large granular lymphocytic leukemia (Acute ~11/04/22) dr coombs Vitamin D deficiency (Acute) Neutrophil dysfunction (Acute) Lichen sclerosus et atrophicus (Acute) Ileitis (Acute) Hypothyroidism (Acute) Hyperlipidemia (Acute) History of diverticulitis of colon (Acute) HLA-B27 spondyloarthropathy (Acute) Diarrhea (Acute) Chronic reflux esophagitis (Acute) AV block, 1st degree (Acute) Chronic cholecystitis Medical History Anemia Hyperlipemia AV block, 1st degree Slow to wake up after anesthesia Ankylosing spondylitis Surgical History History of open reduction and internal fixation (ORIF) procedure History of esophagogastroduodenoscopy (EGD) History of colonoscopy History of vaginal surgery History of dilation and curettage Hx of breast biopsy History of cholecystectomy Hx of tonsillectomy History of oral surgery Hx of cataract surgery History of biopsy Family History Sister Colon cancer Dementia Granulomatous arteritis Brain Myocardial infarction Father Myocardial infarction Mother Fadia doss Denies family history of Ovarian cancer Prostate cancer Breast cancer Social History Smoking Status: Never smoker Second Hand Exposure: No; Do You Dip or Chew Tobacco: No; Hx Alcohol Use: No Hx Substance Use: No Preferred Language: Belarusian Communication Ability: Effective Visual Impairment: No Limitations Hearing Ability: Normal Equalizing Saw Operator Required: No Beliefs That Will Affect Care: None marital status: Current Living Situation: Alone current occupational status: retired Feels Safe at Home: Yes Childhood Exposure to Second-Hand Smoke: No Dental Care, Regularly: Yes Physical Activity Frequency: 1-2 Times per Week Seatbelt Use: always Sunscreen Use: No Assistive Devices: Glasses and Walker Allergies Allergies Allergy/AdvReac Type Severity Reaction Status Date / Time Penicillins Allergy Intermediate Hives Verified 09/06/23 14:01 Sulfa (Sulfonamide AdvReac Intermediate Vomiting Verified 09/06/23 14:01 Antibiotics) Home Meds Home Medications Medication Instructions Recorded Confirmed cyanocobalamin (vitamin B-12) 1,000 mcg PO QAM 10/07/18 09/06/23 1,000 mcg capsule cyclosporine 0.05 % eye drops in a 1 drp ophthalmic (eye) Q12H 04/12/20 09/06/23 dropperette (Restasis) cholecalciferol (vitamin D3) 100 100 mcg PO QAM 05/16/21 09/06/23 mcg (4,000 unit) capsule methotrexate sodium 2.5 mg tablet 15 mg PO WK 08/08/21 09/06/23 folic acid 400 mcg tablet 0.4 mg PO DAILY 07/24/23 09/06/23 aspirin 81 mg tablet,delayed 81 mg PO DAILY 09/06/23 09/06/23 release Previous Rx's Medication Instructions Recorded levothyroxine 100 mcg tablet 100 mcg PO QAM #90 tabs 08/19/23 (Synthroid) Results & Data (ED) Vital Signs Vital Signs - 24 hr 09/06/23 11:41 09/06/23 11:41 09/06/23 11:41 Temperature 36.7 C Temperature Source Oral Pulse Rate 60 Pulse Rate [Apical] 61 Respiratory Rate 18 16 Respiratory Effort / Characteristics Non-Labored Non-Labored Respiratory Depth Normal Normal Blood Pressure 140/61 Blood Pressure Mean 87 Pulse Oximetry 95 97 Oxygen Delivery Method Room Air Room Air Room Air Sepsis Recent Fever Within 48 Hours No Sepsis New/Unexplained Change in Mental Status No Sepsis Action Taken by Nursing No Action Required 09/06/23 12:03 09/06/23 12:34 09/06/23 14:00 Temperature Temperature Source Pulse Rate 62 Pulse Rate [Apical] 60 61 Respiratory Rate 16 Respiratory Effort / Characteristics Non-Labored Respiratory Depth Normal Blood Pressure Blood Pressure Mean Pulse Oximetry 94 Oxygen Delivery Method Room Air Sepsis Recent Fever Within 48 Hours Sepsis New/Unexplained Change in Mental Status Sepsis Action Taken by Nursing 09/06/23 14:22 Temperature Temperature Source Pulse Rate 64 Pulse Rate [Apical] Respiratory Rate 18 Respiratory Effort / Characteristics Respiratory Depth Blood Pressure Blood Pressure Mean Pulse Oximetry 95 Oxygen Delivery Method Room Air Sepsis Recent Fever Within 48 Hours Sepsis New/Unexplained Change in Mental Status Sepsis Action Taken by Nursing Laboratory Data 09/06/23 11:59 09/06/23 11:59 Lab Results 09/06/23 09/06/23 Range/Units 11:53 11:59 WBC 3.99 L (4.8-10.8) K/ul RBC 3.50 L (4.20-5.40) M/uL Hgb 10.8 L (12.0-16.0) g/dl Hct 32.9 L (37.0-47.0) % MCV 94.0 (80.0-100.0) fL MCH 30.9 (25.0-34.0) pg MCHC 32.8 (32.0-36.0) g/dL RDW Std Deviation 57.4 H (36.4-46.3) fL RDW Coeff of Rosalba 16.9 H (11.5-14.5) % Plt Count 215 (130-400) K/uL MPV 9.7 (9.4-12.4) fL Neutrophils % (Manual) 24 % Lymphocytes % (Manual) 15 % Monocytes % (Manual) 8 % Eosinophils % (Manual) 3 % Neutrophils # (Manual) 0.96 L (1.40-6.50) K/uL Total Absolute Neuts 0.96 L* (1.4-6.5) K/uL Lymphocytes # (Manual) 0.60 L (1.2-3.4) K/uL Total Abs Lymphocytes 2.59 (1.2-3.4) K/uL Monocytes # (Manual) 0.32 (0.11-0.59) K/uL Eosinophils # (Manual) 0.12 (0-0.50) K/uL Large Granular Lymphs 50 % # Lrg Granular Lymphs 2.00 K/uL Ovalocytes 1+ Sodium 138 (136-145) mmol/L Potassium 4.0 (3.5-5.1) mmol/L Chloride 104 (98-107) mmol/L Carbon Dioxide 27 (21-32) mmol/L Anion Gap 7 (3-11) BUN 15 (6-23) mg/dl Creatinine 0.84 (0.6-1.2) mg/dl Est Cr Clr Drug Dosing 46.7 ml/min Est GFR ( Amer) 74.0 ml/min Est GFR (Non-Af Amer) 63.8 ml/min BUN/Creatinine Ratio 17.9 (10-20) Glucose 90 (70-99(Fasting)) mg/dl Calcium 9.2 (8.6-10.3) mg/dl Magnesium 2.0 (1.7-2.4) mg/dl Total Bilirubin 2.1 H (0.2-1.0) mg/dl Direct Bilirubin 0.3 H (0-0.2) mg/dl AST 31 (13-39) U/L ALT 27 (7-52) U/L Alkaline Phosphatase 64 (34-104) U/L Troponin I High Sens 5.0 (0-14) pg/ml Total Protein 7.0 (6.0-8.3) gm/dl Albumin 4.5 (3.4-5.0) gm/dl Urine Color Yellow Urine Appearance Clear (Clear) Urine pH 7.0 (4.5-7.5) Ur Specific [place] 1.008 (1.000-1.030) Urine Protein Negative (Negative) Urine Glucose (UA) Negative (Negative) Urine Ketones Negative (Negative) Urine Blood Negative (Negative) Urine Nitrite Negative (Negative) Urine Bilirubin Negative (Negative) Urine Urobilinogen Negative (Negative) Ur Leukocyte Esterase Negative (Negative) SARS-CoV-2 (PCR) POSITIVE (Negative) Influenza Type A (PCR) Negative (Neg) Influenza Type B (PCR) Negative (Neg) RSV (RT-PCR) Negative (Neg) Administered Medications Discontinued Medications Sodium Chloride (Nss) 500 mls @ 999 mls/hr IV .Q31M ONE Stop: 09/06/23 12:19 Last Infusion: 09/06/23 12:33 Dose: Infused Documented By: Admin: 09/06/23 11:53 Dose: 999 mls/hr Documented By: MMG Imaging Data Radiologist's Impression: Chest X-Ray 09/06/23 11:45 XR chest 1V portable HISTORY: weakness COMPARISON: Chest 07/24/2023. FINDINGS: The lungs are clear. Cardiac silhouette is normal in size. No pleural effusions. No pneumothorax. IMPRESSION: No acute process. ACT 112: Negative or not required by law. Electronically signed by: Ja Dubose M.D. 09/06/2023 1:[address] 09/06/23 11:[address] DOSE: 547.75 mGy.cm HISTORY: Vertigo. weakness TECHNIQUE: Multiaxial CT images of the head were performed without the use of intravenous contrast. Automated exposure control was utilized for this study. A dose lowering technique was utilized adhering to the principles of ALARA. Comparison: Brain MRI 07/24/2023. Head CT 07/24/2023. Findings: The paranasal sinuses and mastoid air cells are clear. The calvarium and skull base are intact. The ventricles and sulci are within normal limits. There is no mass, hematoma, midline shift, or acute infarct. Chronic cortical calcification within the posterior occipital lobes. This remains unchanged. Impression: No significant change compared to the prior study. No acute intracranial abnormality. ACT 112: Negative or not required by law. Electronically signed by: Ja Dubose M.D. 09/06/2023 12:32 PM Discharge Plan Visit Data Chief Complaint: Weakness Stated Complaint: WEAKNESS ED Provider: Yahir Rosado Discharge Problem: COVID-19, Generalized weakness, Ambulatory dysfunction Patient Disposition: Admitted As Inpatient Discharge Instructions Interventions: ED Discharge Assessment Last Done: 09/06/23 14:22 Forms Stand Alone Forms: [employer] Prescriptions Prescriptions: No Action levothyroxine [Synthroid] 100 mcg tablet 100 mcg PO QAM Qty: 90 0RF methotrexate sodium 2.5 mg tablet 15 mg PO WK Rx Instructions: TAKES ON THURSDAYS. cyanocobalamin (vitamin B-12) 1,000 mcg capsule 1,000 mcg PO QAM cyclosporine [Restasis] 0.05 % Dropperette 1 drp OPHTHALMIC (EYE) Q12H cholecalciferol (vitamin D3) 100 mcg (4,000 unit) Capsule 100 mcg PO QAM folic acid 400 mcg Tablet 0.4 mg PO DAILY aspirin 81 mg Tablet,Delayed Release (Dr/Ec) 81 mg PO DAILY Referrals Referrals: Pro,Apolinar Herman MD [Primary Care Provider] -
[2023-09-06] MEDS: SODIUM CHLORIDE 0.9% 500 ML IV ONE (11:53)
[2023-09-06 12:23] LABS: Appearance Urine Clear (Clear); Bilirubin Urine Negative (Negative); Blood Urine Negative (Negative); Color Urine Yellow; Glucose Urine UA Negative (Negative); Ketones Urine Negative (Negative); Leukocyte Esterase Urine Negative (Negative); Nitrite Urine Negative (Negative); Protein Urine Negative (Negative); Specific Gravity Urine 1.008 (1.000-1.030); Urobilinogen Urine Negative (Negative)
[2023-09-06 12:32] LABS: Hematocrit (blood only) 32.9 % (37.0-47.0); Hemoglobin 10.8 g/dl (12.0-16.0); Mean Corpuscular Hemoglobin 30.9 pg (25.0-34.0); Mean Corpuscular Hgb Conc 32.8 g/dL (32.0-36.0); Mean Platelet Volume 9.7 fL (9.4-12.4); Platelet Count 215 K/uL (130-400); RDW Coefficient of Variation 16.9 % (11.5-14.5); RDW Standard Deviation 57.4 fL (36.4-46.3); White Blood Count 3.99 K/ul (4.8-10.8)
--- NOTE | 2023-09-06 12:35 | CT Scan Report ---
HEAD CT NONCONTRAST CT DOSE: 547.75 mGy.cm HISTORY: Vertigo. weakness TECHNIQUE: Multiaxial CT images of the head were performed without the use of intravenous contrast. A utomated exposure control was utilized for this study. A dose lowering technique was utilized adheri ng to the principles of ALARA. Comparison: Brain MRI 07/24/2023. Head CT 07/24/2023. Findings: The paranasal sinuses and mastoid air cells are clear. The calvarium and skull base are int act. The ventricles and sulci are within normal limits. There is no mass, hematoma, midline shift, or acute infarct. Chronic cortical calcification within the posterior occipital lobes. This remains unc hanged. Impression: No significant change compared to the prior study. No acute intracranial abnormality. ACT 112: Negative or not required by law. Electronically signed by: Ja Dubose M.D. 09/06/2023 12:32 PM
[2023-09-06 12:46] LABS: Albumin Level 4.5 gm/dl (3.4-5.0); BUN Creatinine Ratio 17.9 (10-20); Bilirubin Direct 0.3 mg/dl (0-0.2); Bilirubin,Total 2.1 mg/dl (0.2-1.0); Calcium 9.2 mg/dl (8.6-10.3); Creatinine Clr Calc Pharmacy 46.7 ml/min; Est GFR (Non-African American) 63.8 ml/min
[2023-09-06 12:54] LABS: ALC (manual) 2.59 K/uL (1.2-3.4); ANC (manual) 0.96 K/uL (1.4-6.5); Eosinophils # (manual) 0.12 K/uL (0-0.50); Eosinophils % (manual) 3 %; Large Granular Lymph % (manual) 50 %; Lymphocytes % (manual) 15 %; Monocytes # (manual) 0.32 K/uL (0.11-0.59); Monocytes % (manual) 8 %; Neutrophils # (manual) 0.96 K/uL (1.40-6.50); Neutrophils % (manual) 24 %; Ovalocytes 1+
[2023-09-06 13:01] LABS: Influenza A virus by PCR Negative (Neg); Influenza B virus by PCR Negative (Neg); RSV by PCR Negative (Neg); SARS CoV2 RNA(COVID-19) Ceph POSITIVE (Negative)
--- NOTE | 2023-09-06 13:08 | XRay Report ---
XR chest 1V portable HISTORY: weakness COMPARISON: Chest 07/24/2023. FINDINGS: The lungs are clear. Cardiac silhouette is normal in size. No pleural effusions. No pneumot horax. IMPRESSION: No acute process. ACT 112: Negative or not required by law. Electronically signed by: Ja Dubose M.D. 09/06/2023 1:07 PM
--- NOTE | 2023-09-06 13:53 | History & Physical Report ---
Date of Service September 06, 2023 Assessment & Plan (1) COVID: Plan: Vaccinated and boosted Discussed Paxlovid however trials designed to prevent severe respiratory disease when this was more of a problem and she is currently not having any respiratory symptoms, not even clear weakness is due to this although it is the only etiology found on admission - therefore deferred on admission Symptomatic treatment only (2) Encephalopathy acute: Plan: Suspect secondary to COVID as above (3) Ambulatory dysfunction: Plan: Suspect secondary to COVID PT/OT (4) Dizziness: Plan: Unclear vertigo vs. 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 Very difficult to get a clear history and timeline from the patient but she reports progressive weakness possibly over the last week or 2 days. Much worse today and unable to get up and around her house. Unclear if this is associated with pain. She was recently in hospital in the end of June for physical deconditioning and BPPV. She reports "vertigo" again but also reports no room spinning sensation and cannot tell me whether this ever happens while lying down. Unclear if this is more of lightheadedness as associated with sitting up. Not currently having this sensation. No fever, chills, respiratory, urinary or gastrointestinal symptoms. Allergies Allergy/AdvReac Type Severity Reaction Status Date / Time Penicillins Allergy Intermediate Hives Verified 09/06/23 14:01 Sulfa (Sulfonamide AdvReac Intermediate Vomiting Verified 09/06/23 14:01 Antibiotics) Home Medications Medication Instructions Recorded Confirmed Type cyanocobalamin (vitamin B-12) 1,000 mcg PO QAM 10/07/18 09/06/23 History 1,000 mcg capsule cyclosporine 0.05 % eye drops in a 1 drp ophthalmic (eye) Q12H 04/12/20 09/06/23 History dropperette (Restasis) cholecalciferol (vitamin D3) 100 100 mcg PO QAM 05/16/21 09/06/23 History mcg (4,000 unit) capsule methotrexate sodium 2.5 mg tablet 15 mg PO WK 08/08/21 09/06/23 History folic acid 400 mcg tablet 0.4 mg PO DAILY 07/24/23 09/06/23 History levothyroxine 100 mcg tablet 100 mcg PO QAM #90 tabs 08/19/23 09/06/23 Rx (Synthroid) aspirin 81 mg tablet,delayed 81 mg PO DAILY 09/06/23 09/06/23 History release Past Med/Surg History Problem List (Updated 09/07/23 @ 06:22 by Souleymane Hurtado MD) Ambulatory dysfunction Encephalopathy acute COVID Dizziness (Acute) Neutropenia (Acute) Weakness (Acute) Syncope BECERRA (dyspnea on exertion) Encounter for pre-operative examination Mitral regurgitation Benign positional vertigo Dizziness, nonspecific (Acute) Multiple lung nodules on CT annual CT scan (most recent July 2019) T-cell large granular lymphocytic leukemia (Acute ~11/04/22) dr coombs Vitamin D deficiency (Acute) Neutrophil dysfunction (Acute) Lichen sclerosus et atrophicus (Acute) Ileitis (Acute) Hypothyroidism (Acute) Hyperlipidemia (Acute) History of diverticulitis of colon (Acute) HLA-B27 spondyloarthropathy (Acute) Diarrhea (Acute) Chronic reflux esophagitis (Acute) AV block, 1st degree (Acute) Chronic cholecystitis Medical History Anemia Hyperlipemia AV block, 1st degree Slow to wake up after anesthesia Ankylosing spondylitis Surgical History History of open reduction and internal fixation (ORIF) procedure History of esophagogastroduodenoscopy (EGD) History of colonoscopy History of vaginal surgery History of dilation and curettage Hx of breast biopsy History of cholecystectomy Hx of tonsillectomy History of oral surgery Hx of cataract surgery History of biopsy Family History Sister Colon cancer Dementia Granulomatous arteritis Brain Myocardial infarction Father Myocardial infarction Mother Loaiza Frank attack Denies family history of Ovarian cancer Prostate cancer Breast cancer Social History Smoking Status: Never smoker Second Hand Exposure: No; Do You Dip or Chew Tobacco: No; Hx Alcohol Use: No Hx Substance Use: No Preferred Language: Tamazight Communication Ability: Effective Visual Impairment: No Limitations Hearing Ability: Normal 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 Beliefs That Will Affect Care: None marital status: Current Living Situation: Alone current occupational status: retired Other Information That Helps Us Care for You: No Feels Safe at Home: Yes Safety Concerns: Feels Safe At This Time Childhood Exposure to Second-Hand Smoke: No Dental Care, Regularly: Yes Physical Activity Frequency: 1-2 Times per Week Seatbelt Use: always Sunscreen Use: No Assistive Devices: Glasses and Walker Review of Systems Review of Systems: All systems reviewed & are unremarkable except as noted in HPI & below Physical Exam Constitutional: well developed; + not well nourished and no acute distress Eyes: PERRL, conjunctivae normal, anicteric sclerae ENMT: external ear and nose normal, oropharynx normal Neck: trachea midline, no thyromegaly Respiratory: normal respiratory effort, lungs clear to auscultation Cardiovascular: RRR, no murmur, no edema Gastrointestinal (Abdomen): normal bowel sounds, soft, nontender, no hepatosplenomegaly Musculoskeletal: no cyanosis or clubbing, extremities motor strength 5/5 Skin: no rashes, warm and dry Neurologic: moves all extremities, awake and + confused; no focal motor deficits (no lateralizing weakness) Speech / Cognition: normal speech Motor/Sensory: no tremor and no pronator drift Cranial Nerves: PERRL, EOM intact bilaterally, normal facial strength, tongue midline, able to rotate head bilaterally, able to elevate shoulders bilaterally, no nystagmus and symmetric palate elevation Psychiatric: Orientation: alert and oriented x 3 Results & Data Results & Data Vital Signs (Past 12 Hours) Vital Signs Temp Pulse Pulse Resp BP Pulse Ox O2 Del Method 09/06/23 12:34 62 09/06/23 12:03 60 09/06/23 11:41 61 16 97 Room Air 09/06/23 11:41 Room Air 09/06/23 11:41 36.7 C 60 18 140/61 95 Room Air Laboratory Results Abnormal lab results 09/06/23 Range/Units 11:59 WBC 3.99 L (4.8-10.8) K/ul RBC 3.50 L (4.20-5.40) M/uL Hgb 10.8 L (12.0-16.0) g/dl Hct 32.9 L (37.0-47.0) % RDW Std Deviation 57.4 H (36.4-46.3) fL RDW Coeff of Rosalba 16.9 H (11.5-14.5) % Neutrophils # (Manual) 0.96 L (1.40-6.50) K/uL Total Absolute Neuts 0.96 L* (1.4-6.5) K/uL Lymphocytes # (Manual) 0.60 L (1.2-3.4) K/uL Total Bilirubin 2.1 H (0.2-1.0) mg/dl Direct Bilirubin 0.3 H (0-0.2) mg/dl Diagnostic Findings HEAD CT NONCONTRAST CT DOSE: 547.75 mGy.cm HISTORY: Vertigo. weakness TECHNIQUE: Multiaxial CT images of the head were performed without the use of intravenous contrast. Automated exposure control was utilized for this study. A dose lowering technique was utilized adhering to the principles of ALARA. Comparison: Brain MRI 07/24/2023. Head CT 07/24/2023. Findings: The paranasal sinuses and mastoid air cells are clear. The calvarium and skull base are intact. The ventricles and sulci are within normal limits. There is no mass, hematoma, midline shift, or acute infarct. Chronic cortical calcification within the posterior occipital lobes. This remains unchanged. Impression: No significant change compared to the prior study. No acute intracranial abnormality. Medications Administered ER Medications Given: NSS 500ml bolus ECG Rate (beats per minute): 62 Rhythm: normal sinus Findings: + nonspecific-ST abn; no acute ischemic change Comparison ECG Date: from (July 24, 2023) Change: the following changes noted (PVCs no longer present) Code Status & VTE Plan Code Status DNR/DNI VTE Prophylaxis Plan VTE Prophylaxis will be ordered: Yes PG Care Time/CCT Total # of Minutes Spent Total Time Spent: 80 Total Time Spent with Patient: Total time spent is greater than 50% in coordination of care (as documented) at patient's floor/unit and/or counseling patient: Coding Level of Care Code 63769 INT INP/OBS CARE 3/75MIN Diagnoses COVID U07.1 Encephalopathy acute G93.40 Ambulatory dysfunction R26.2 Dizziness R42 Neutropenia D70.9 Neutropenia type: unspecified Hypothyroidism E03.9 T-cell large granular lymphocytic leukemia C91.Z0 (5) Neutropenia Neutropenia type: unspecified Qualified Code(s): D70.9 - Neutropenia, unspecified
[2023-09-06 14:34] LABS: Thyroid Stimulating Hormone 0.607 uIu/ml (0.300-4.500)
[2023-09-06] MEDS ORDERED: ACETAMINOPHEN 325 MG TAB PO PRN (14:56)
[2023-09-06] MEDS: ENOXAPARIN INJ 40 MG/0.4 ML SYR SQ SCH (20:34)
[2023-09-06] MEDS: ARTIFICIAL TEARS OP SCH (20:39)
[2023-09-07] MEDS: LEVOTHYROXINE SODIUM 100 MCG TABLET PO SCH (05:38)
[2023-09-07] MEDS: FOLIC ACID 400 MCG TAB PO SCH (08:01)
[2023-09-07] MEDS: CYANOCOBALAMIN (B-12) 500 MCG TABLET PO SCH (08:02)
[2023-09-07] MEDS: CHOLECALCIFEROL 25 MCG (1000 UNITS) TAB PO SCH (08:02)
[2023-09-07] MEDS: ASPIRIN 81 MG ECTAB PO SCH (08:03)
[2023-09-07] MEDS ORDERED: guaiFENesin 600 MG TABCR PO PRN (11:54)
--- NOTE | 2023-09-07 11:59 | Hospitalist Progress Note ---
Date of Service September 07, 2023 Assessment & Plan (1) COVID: Plan: Vaccinated and boosted -Paxlovid discussed and deferred on admission given lack of respiratory symptoms -Stable on room air Symptomatic treatment only - tylenol, IS, prn mucinex PT/OT - PT recommending rehab (2) Encephalopathy acute: Plan: Suspect secondary to COVID as above (3) Dizziness: Plan: Recent admission 07/2023 for BPPV Denied dizziness during my visit today and ambulated from bathroom without issue (4) Neutropenia: Plan: Suspect secondary to current COVID infection and underlying leukemia Isolation precautions Plan Chronic stable medical conditions: * hypothyroid - continue Synthroid. TSH WNL * T cell large granular lymphocytic leukemia - follows with heme/onc. Hold methotrexate VTE Prophylaxis - Lovenox Disposition - continued inpatient stay Daughter updated by phone - shocked that rehab was recommended and thought mom would go home with home health. plans to discuss with her mother. Admission and Anticipated Discharge Date Admission Date: September 06, 2023 Subjective Patient seen ambulating back from getting washed up, stand by assist. patient reports feeling much better since she was able to get cleaned up. maintains appetite. Does report feeling short of breath with activity but this has not gotten worse in the last week and she does not feel short of breath after walking back from the bathroom Feels stronger than yesterday but weaker than her baseline. Denies pain Review of Systems Review of Systems: All systems reviewed & are unremarkable except as noted in Subjective Physical Exam Physical Exam: General: NAD, VS as above Resp: normal respiratory effort, lungs clear to auscultation, no wheezing CV: RRR, no murmur, Abd: normal bowel sounds, non tender, no hepatosplenomegaly Extremities: Moves all extremities, no edema Neuro: A&O x3, Skin: intact, no lesions noted Results & Data Results & Data Vital Signs (Past 12 Hours) Vital Signs Temp Pulse Resp BP Pulse Ox O2 Del Method 09/07/23 06:51 36.7 C 62 16 108/64 95 Room Air PG Care Time/CCT Total # of Minutes Spent Total Time Spent with Patient: Total time spent is greater than 50% in coordination of care (as documented) at patient's floor/unit and/or counseling patient: Coding Level of Care Code 80249 SUB INP/OBS CARE 2/35MIN Diagnoses COVID U07.1 Encephalopathy acute G93.40 Dizziness R42 Neutropenia D70.9 Neutropenia type: unspecified (4) Neutropenia Neutropenia type: unspecified Qualified Code(s): D70.9 - Neutropenia, unspecified
--- NOTE | 2023-09-07 12:29 | Electrocardiogram Report ---
Test Reason : Blood Pressure : / mmHG Vent. Rate : 062 BPM Atrial Rate : 062 BPM P-R Int : 224 ms QRS Dur : 078 ms QT Int : 356 ms P-R-T Axes : 010 047 -22 degrees QTc Int : 361 ms Sinus rhythm with 1st degree A-V block Nonspecific T wave abnormality Abnormal ECG When compared with ECG of 24-JUL-2023 08:28, Premature ventricular complexes are no longer Present NH interval has increased QT has shortened Confirmed by Apolinar Hyatt ([id number]) on 09/07/2023 12:28:56 PM Referred By: REFERRED SELF Confirmed By:Apolinar Hyatt
--- NOTE | 2023-09-08 10:55 | Hospitalist Progress Note ---
Date of Service September 08, 2023 Assessment & Plan (1) COVID: Plan: Vaccinated and boosted -Paxlovid discussed and deferred on admission given lack of respiratory symptoms -Stable on room air Symptomatic treatment only - tylenol, IS, prn mucinex PT/OT - PT recommending rehab, patient and family do not want this and plan is home with home PT on 09/08 (2) Diarrhea: Plan: Onset 09/07 with mild RLQ abdominal pain Possibly related to Covid check stool studies, CBC and CMP (3) Encephalopathy acute: Plan: Suspect secondary to COVID as above (4) Dizziness: Plan: Recent admission 07/2023 for BPPV Denied dizziness during my visit today and ambulated from bathroom without issue (5) Neutropenia: Plan: Suspect secondary to current COVID infection and underlying leukemia Isolation precautions Plan Chronic stable medical conditions: * hypothyroid - continue Synthroid. TSH WNL * T cell large granular lymphocytic leukemia - follows with heme/onc. Hold methotrexate VTE Prophylaxis - Lovenox Disposition - continued inpatient stay Daughter updated by phone 09/06, and 09/07 would like COVID test AM of 09/08 for planning for care going forward. Admission and Anticipated Discharge Date Admission Date: September 06, 2023 Supervising Physician Co-Signing Physician Notes Attending Attestation: Chart reviewed, care plan d/w ADAN Fernandez. I agree w/ the silva components of her documentation. Souleymane Perez MD Subjective Patient seen lying in bed. Denies cough or shortness of breath. Has had two episodes of diarrhea this morning, with mild abdominal pain. Denies diarrhea before arriving to the hospital. states she does not normally have a bowel movement everyday, unsure when her last one was would like to be recovid tested per her daughters request Review of Systems Review of Systems: All systems reviewed & are unremarkable except as noted in Subjective Physical Exam Physical Exam: General: NAD, VS as above Resp: normal respiratory effort, lungs clear to auscultation, no wheezing CV: RRR, no murmur, Abd: normal bowel sounds, mild RLQ tenderness, no rebounding or guarding , no hepatosplenomegaly Extremities: Moves all extremities, no edema Neuro: A&O x3, Skin: intact, no lesions noted Results & Data Results & Data Vital Signs (Past 12 Hours) Vital Signs Temp Pulse Resp BP Pulse Ox O2 Del Method 09/08/23 07:26 36.6 C 64 16 125/63 96 Room Air Laboratory Results CBC and chemsitry reviewed PG Care Time/CCT Total # of Minutes Spent Total Time Spent with Patient: Total time spent is greater than 50% in coordination of care (as documented) at patient's floor/unit and/or counseling patient: Coding Level of Care Code 98605 SUB INP/OBS CARE 3/50MIN Diagnoses COVID U07.1 Diarrhea R19.7 Encephalopathy acute G93.40 Dizziness R42 Neutropenia D70.9 Neutropenia type: unspecified (5) Neutropenia Neutropenia type: unspecified Qualified Code(s): D70.9 - Neutropenia, unspecified
[2023-09-08 13:37] LABS: Hematocrit (blood only) 31.3 % (37.0-47.0); Hemoglobin 10.5 g/dl (12.0-16.0); Mean Corpuscular Hemoglobin 31.3 pg (25.0-34.0); Mean Corpuscular Hgb Conc 33.5 g/dL (32.0-36.0); Mean Corpuscular Volume 93.2 fL (80.0-100.0); Mean Platelet Volume 9.4 fL (9.4-12.4); Platelet Count 193 K/uL (130-400); RDW Coefficient of Variation 17.2 % (11.5-14.5); RDW Standard Deviation 58.7 fL (36.4-46.3); Red Blood Count 3.36 M/uL (4.20-5.40); White Blood Count 4.82 K/ul (4.8-10.8)
[2023-09-08 13:58] LABS: Albumin Globulin Ratio 1.9 (0.9-2); Albumin Level 4.4 gm/dl (3.4-5.0); BUN Creatinine Ratio 15.5 (10-20); Bilirubin,Total 2.2 mg/dl (0.2-1.0); Calcium 9.8 mg/dl (8.6-10.3); Creatinine Clr Calc Pharmacy 38.1 ml/min; Est GFR (African American) 57.8 ml/min; Est GFR (Non-African American) 49.9 ml/min; Globulin 2.3 gm/dl (2.5-4.0); Potassium 4.8 mmol/L (3.5-5.1); Total Protein 6.7 gm/dl (6.0-8.3)
[2023-09-08 14:51] LABS: Ovalocytes 1+
[2023-09-08 14:54] LABS: Basophils # (auto) 0.03 K/uL (0.00-0.20); Basophils % (auto) 0.6 %; Eosinophils # (auto) 0.02 K/uL (0.00-0.50); Eosinophils % (auto) 0.4 %; Lymphocytes % (auto) 74.7 %; Monocytes # (auto) 0.37 K/uL (0.11-0.59); Monocytes % (auto) 7.7 %; Neutrophils % (auto) 16.6 %
--- NOTE | 2023-09-09 11:09 | Discharge Summary ---
Discharge Summary Date of Service September 09, 2023 Principal Dx & Hospital Course #1 = Principal Diagnosis (1) COVID: Vaccinated and boosted -Paxlovid discussed and deferred on admission given lack of respiratory symptoms -Stable on room air Symptomatic treatment only - tylenol, IS, prn mucinex PT/OT - PT recommending rehab, patient and family do not want this and plan is home with home PT on 09/08 Discussed CDC guidelines for isolation Family requested repeat covid swab day of discharge, pending at time of discharge - advised to check portal for results, but suspect it will be positive. (2) Diarrhea: Onset 09/07 with mild RLQ abdominal pain Possibly related to Covid labs reviewed diarrhea improving (3) Encephalopathy acute: Suspect secondary to COVID as above resolved (4) Dizziness: Recent admission 07/2023 for BPPV Denied dizziness during inpatient stay (5) Neutropenia: Suspect secondary to current COVID infection and underlying leukemia Isolation precautions Plan Chronic stable medical conditions: * hypothyroid - continue Synthroid. TSH WNL * T cell large granular lymphocytic leukemia - follows with heme/onc. Hold methotrexate for this weeks dosing, discussed with Dr. Joe Daughter updated by phone 09/06, and 09/07. Inperson 09/08 Discharge to home today with home therapy Notes For Next Care Provider Admitted with weakness - secondary to covid and possibly dehydration. Covid treated symptomatically. Declined rehab. Home with home PT, daughter will be staying with her for the next week. hold methotrexate for this week dosing Medication Changes From Visit Hold methotrexate for one week Admission HPI Per Admitting Provider Claudia Montiel is an 83 year old female who presents to the ER with generalized weakness and dizziness. Very difficult to get a clear history and timeline from the patient but she reports progressive weakness possibly over the last week or 2 days. Much worse today and unable to get up and around her house. Unclear if this is associated with pain. She was recently in hospital in the end of June for physical deconditioning and BPPV. She reports "vertigo" again but also reports no room spinning sensation and cannot tell me whether this ever happens while lying down. Unclear if this is more of lightheadedness as associated with sitting up. Not currently having this sensation. No fever, chills, respiratory, urinary or gastrointestinal symptoms. Discharge Exam General: NAD, VS as above Resp: normal respiratory effort, lungs clear to auscultation, no wheezing CV: RRR, no murmur, Abd: normal bowel sounds, mild RLQ tenderness, no rebounding or guarding , no hepatosplenomegaly Extremities: Moves all extremities, no edema Neuro: A&O x3, Skin: intact, no lesions noted Updated Medication List Medication Instructions Recorded Confirmed Type cyanocobalamin (vitamin B-12) 1,000 mcg PO QAM 10/07/18 09/06/23 History 1,000 mcg capsule cyclosporine 0.05 % eye drops in a 1 drp ophthalmic (eye) Q12H 04/12/20 09/06/23 History dropperette (Restasis) cholecalciferol (vitamin D3) 100 100 mcg PO QAM 05/16/21 09/06/23 History mcg (4,000 unit) capsule methotrexate sodium 2.5 mg tablet 15 mg PO WK 08/08/21 09/06/23 History folic acid 400 mcg tablet 0.4 mg PO DAILY 07/24/23 09/06/23 History aspirin 81 mg tablet,delayed 81 mg PO DAILY 09/06/23 09/06/23 History release levothyroxine 100 mcg tablet 100 mcg PO QAM #90 tabs 09/07/23 Rx (Synthroid) Hospital Stay Data Consultations 09/06/23 13:47 ED Decision to Admit Stat Diagnostic Imagining Performed Chest X-Ray 09/06/23 11:45 XR chest 1V portable HISTORY: weakness COMPARISON: Chest 07/24/2023. FINDINGS: The lungs are clear. Cardiac silhouette is normal in size. No pleural effusions. No pneumothorax. IMPRESSION: No acute process. ACT 112: Negative or not required by law. Electronically signed by: Ja Dubose M.D. 09/06/2023 1:[address] 09/06/23 11:[address] DOSE: 547.75 mGy.cm HISTORY: Vertigo. weakness TECHNIQUE: Multiaxial CT images of the head were performed without the use of intravenous contrast. Automated exposure control was utilized for this study. A dose lowering technique was utilized adhering to the principles of ALARA. Comparison: Brain MRI 07/24/2023. Head CT 07/24/2023. Findings: The paranasal sinuses and mastoid air cells are clear. The calvarium and skull base are intact. The ventricles and sulci are within normal limits. There is no mass, hematoma, midline shift, or acute infarct. Chronic cortical calcification within the posterior occipital lobes. This remains unchanged. Impression: No significant change compared to the prior study. No acute intracranial abnormality. ACT 112: Negative or not required by law. Electronically signed by: Ja Dubose M.D. 09/06/2023 12:32 PM Pending Results Patient Have Any Pending Studies at Discharge: Yes (repeat covid swab ) Discharge Instructions Given to Patient (Per Discharging Provider) Ms. Montiel, You were hospitalized after having weakness at home. We found that you were COVID positive on a respiratory screen. Thankfully, you have had mild symptoms and did not require supplemental oxygen. Physical and occupational therapy recommended rehab and you and your daughter have decided against this and have chosen to return home with home PT. You diarrhea has improved which is likely related to the COVID infection. You can use tylenol and mucinex over the counter if your symptoms worsen. Do NOT take your methotrexate this week while you have an acute illness. You can discuss with your PCP about restarting for next week. Your repeat COVID swab is pending, you can check the results on the [facility] portal. You should follow CDC guidelines for isolation. Current recommendations is 5 days. Activity: You can do normal everyday activities as your body allows. Take rest breaks if you feel tired. Do not overexert. Stop activity if you have pain, shortness of breath or feel dizzy. Follow-up appointments: Make an appointment with your primary care physician within one week of discharge. A copy of this summary will be sent to them. Every time you see your primary care physician, or any other doctor, bring your medication list, and a list of questions. CONTACT YOUR PRIMARY CARE PROVIDER if you experience any of the following: Shortness of breath or difficulty breathing Fevers or chills Feeling tired with normal activity or experiencing dizziness or fainting Difficulty following your treatment plan, or difficulty taking medications CALL 911 OR GO TO THE EMERGENCY DEPARTMENT if you experience any of the following: Severe abdominal pain or nausea/vomiting Severe chest pain, or chest pain that radiates (moves) to your jaw or arm Sudden, severe shortness of breath or difficulty breathing Thank you for allowing us to participate in your care. Total Time Total Time Spent Total Time Spent (In Minutes): Time spend day of discharge [33] minutes including direct patient care, medication reconciliation, documentation, review of labs and images, and coordination of care. Coding Level of Care Code 82430 INP/OBS DISCH >30 MIN Diagnoses COVID U07.1 Diarrhea R19.7 Encephalopathy acute G93.40 Dizziness R42 Neutropenia D70.9 Neutropenia type: unspecified
[2023-09-10] MEDS ORDERED: metHOTREXate sodium 2.5 MG TAB PO SCH (09:00)
== END 2023-09-09 12:31 | disposition home health service (06) | DRG 178 ==
LOC: ED 11:36 → 3E 11:36 → SUATTDRO 13:44 → 3E 14:22 → 3W 18:29